=== PATIENT | male | born 1930 | race Caucasian/White ===

== ENCOUNTER → 2016-04-18 | Outpatient (REF) | payer MEDICARE ==
[~2016-04-18] MED LIST: ACET650T PO; ACET65TA; ALLO100T PO; AMIO200T PO; ASPI325T PO; AUGM875T27 PO; CAPT12.5; CARV6.25 PO; CITA10TA2 PO; FISHOIL PO; ISOS30BRAN PO; KLOR10TA PO; LASI40TA; LASI40TA PO; LEVO150T PO; LOPR50TA PO; NITR0.4S; OMEP20CA3 PO; PLAV75TA2 PO; SIMV20TA2 PO; XOPE1.252; ZITH250T
[2016-04-18 13:49] LABS: FREE T4 1.17 NG/DL (0.76-1.46)
== END ==
LOC: M LAB REF 12:50
PROVIDERS: ATTEND Nurse Practitioner Family
DX: E03.9 Hypothyroidism, unspecified (principal)

== ENCOUNTER → 2016-10-13 | Outpatient (CLI) | payer MEDICARE ==
[2016-10-13 19:02] LABS: ALBUMIN 3.4 GM/DL (3.2-5.2); ALBUMIN/GLOBULIN RATIO 1.1 (1.00-1.93); BILIRUBIN,TOTAL 0.6 MG/DL (0.2-1.0); CALCIUM LEVEL 8.8 MG/DL (8.8-10.2); CREATININE FOR GFR 1.76 MG/DL (0.70-1.30); FREE T4 1.18 NG/DL (0.76-1.46); GLOMERULAR FILTRATION RATE 39.5 (>35); POTASSIUM SERUM 4.3 MEQ/L (3.5-5.1); TOTAL PROTEIN 6.5 GM/DL (6.4-8.2); URIC ACID 5.1 MG/DL (3.5-7.2)
[2016-10-13 19:50] LABS: BASO # 0.1 K/mm3 (0.0-0.2); BASO % 1.2 % (0.0-1.0); EOS # 0.5 K/mm3 (0.0-0.50); EOS % 8.9 % (0.0-3.0); LYMPH # 1.3 K/mm3 (1.5-4.5); LYMPH % 19.6 % (24.0-44.0); MEAN CORPUSCULAR HEMOGLOBIN 32.5 pg (27.0-33.0); MEAN CORPUSCULAR HGB CONC 34.8 g/dl (32.0-36.5); MEAN CORPUSCULAR VOLUME 93.2 fl (80.0-96.0); MONO # 0.4 K/mm3 (0.0-0.8); NEUTROPHILS # 3.5 K/mm3 (1.8-7.7); NEUTROPHILS % 60.8 % (36.0-66.0); RED CELL DISTRIBUTION WIDTH 13.5 % (11.5-14.5); WHITE BLOOD COUNT 5.8 K/mm3 (4.0-10.0)
== END ==
LOC: M SMT 10:26
PROVIDERS: ATTEND Nurse Practitioner Family
DX: N18.3 Chronic kidney disease, stage 3 (moderate) (principal); I48.2 Chronic atrial fibrillation; M10.9 Gout, unspecified; E03.9 Hypothyroidism, unspecified; I25.10 Atherosclerotic heart disease of native coronary artery without angina pectoris

== ENCOUNTER → 2017-01-12 | Outpatient (CLI) | payer MEDICARE ==
[2017-01-12 13:15] LABS: MEAN CORPUSCULAR HEMOGLOBIN 31.6 pg (27.0-33.0); MEAN CORPUSCULAR HGB CONC 33.6 g/dl (32.0-36.5); MEAN CORPUSCULAR VOLUME 94.1 fl (80.0-96.0); PLATELET COUNT, AUTOMATED 153 10^3/uL (150-450); RED CELL DISTRIBUTION WIDTH 13.1 % (11.5-14.5); WHITE BLOOD COUNT 5.9 10^3/uL (4.0-10.0)
[2017-01-12 15:00] LABS: ALBUMIN 3.4 GM/DL (3.2-5.2); CALCIUM LEVEL 9.2 MG/DL (8.8-10.2); CREATININE FOR GFR 1.84 MG/DL (0.70-1.30); GLOMERULAR FILTRATION RATE 37.4 (>35); PHOSPHORUS LEVEL 2.8 MG/DL (2.5-4.9); POTASSIUM SERUM 4.6 MEQ/L (3.5-5.1); URIC ACID 5.3 MG/DL (3.5-7.2)
== END ==
LOC: M SMT 10:39
PROVIDERS: ATTEND Nurse Practitioner Family
DX: N18.3 Chronic kidney disease, stage 3 (moderate) (principal); N25.81 Secondary hyperparathyroidism of renal origin; M10.9 Gout, unspecified; D63.1 Anemia in chronic kidney disease

== ENCOUNTER → 2017-04-16 | Outpatient (CLI) | payer MEDICARE ==
[2017-04-16 19:11] LABS: BASO # 0.1 10^3/uL (0.0-0.2); EOS # 0.6 10^3/uL (0.0-0.50); EOS % 10.2 % (0.0-3.0); HEMATOCRIT 40.2 % (42.0-52.0); HEMOGLOBIN 13.3 g/dl (14.0-18.0); IMMATURE GRANULOCYTE % 0.7 % (0-0); LYMPH # 1.3 10^3/uL (1.5-4.5); LYMPH % 20.3 % (24.0-44.0); MEAN CORPUSCULAR HGB CONC 33.1 g/dl (32.0-36.5); MEAN CORPUSCULAR VOLUME 93.7 fl (80.0-96.0); MONO # 0.6 10^3/uL (0.0-0.8); MONO % 10.2 % (0.0-5.0); NEUTROPHILS # 3.5 10^3/uL (1.8-7.7); NEUTROPHILS % 57.6 % (36.0-66.0); PLATELET COUNT, AUTOMATED 164 10^3/uL (150-450); RED BLOOD COUNT 4.29 10^6/uL (4.30-6.10); RED CELL DISTRIBUTION WIDTH 12.7 % (11.5-14.5); WHITE BLOOD COUNT 6.2 10^3/uL (4.0-10.0)
[2017-04-16 19:26] LABS: APPEARANCE, URINE CLEAR (CLEAR); BACTERIA, URINE AUTO NEGATIVE (NEGATIVE); BILIRUBIN, URINE AUTO NEGATIVE (NEGATIVE); BLOOD, URINE BLOOD NEGATIVE (NEGATIVE); COLOR, URINE YELLOW (YELLOW); GLUCOSE, URINE (UA) AUTO NEGATIVE (NEGATIVE); KETONE, URINE AUTO NEGATIVE (NEGATIVE); LEUKOCYTE ESTERASE, URINE AUTO NEGATIVE (NEGATIVE); NITRITE, URINE AUTO NEGATIVE (NEGATIVE); PROTEIN, URINE AUTO 2+ mg/dL (NEGATIVE); RBC, URINE AUTO 0 /HPF (0-3); SPECIFIC GRAVITY URINE AUTO 1.014 (1.002-1.035); SQUAMOUS EPITHELIAL CELL UR AU 0 /HPF (0-6); WBC, URINE AUTO 0 /HPF (0-3)
[2017-04-16 19:51] LABS: ALBUMIN 3.6 GM/DL (3.2-5.2); ALBUMIN/GLOBULIN RATIO 1.09 (1.00-1.93); ALKALINE PHOSPHATASE 101 U/L (45-117); ALT/SGPT 16 U/L (12-78); ANION GAP 5 MEQ/L (8-16); AST/SGOT 16 U/L (7-37); BILIRUBIN,TOTAL 0.6 MG/DL (0.2-1.0); BLOOD UREA NITROGEN 30 MG/DL (7-18); CALCIUM LEVEL 8.7 MG/DL (8.8-10.2); CARBON DIOXIDE LEVEL 30 MEQ/L (21-32); CHLORIDE LEVEL 106 MEQ/L (98-107); CHOLESTEROL LEVEL 135 MG/DL (<200); CHOLESTEROL RISK RATIO 4.354 (<5); CREATININE FOR GFR 1.92 MG/DL (0.70-1.30); FREE T4 1.13 NG/DL (0.76-1.46); GLOMERULAR FILTRATION RATE 35.6 (>35); GLUCOSE, FASTING 89 MG/DL (70-100); HDL CHOLESTEROL 31 MG/DL (>40); LDL CHOLESTEROL 66.6 MG/DL (<100); NON-HDL-C 104 MG/DL; SODIUM LEVEL 141 MEQ/L (136-145); TOTAL PROTEIN 6.9 GM/DL (6.4-8.2); TRIGLYCERIDES LEVEL 187 MG/DL (<150)
[2017-04-16 19:53] LABS: POTASSIUM SERUM 5.2 MEQ/L (3.5-5.1)
[2017-04-16 19:57] LABS: TOTAL 25(OH) VITAMIN D 16.7 NG/ML (30.0-100.0)
[2017-04-16 19:58] LABS: PTH INTACT 87.8 PG/ML (14.0-72.0)
== END ==
LOC: M SMT 11:09
DX: E03.9 Hypothyroidism, unspecified (principal); I12.9 Hypertensive chronic kidney disease with stage 1 through stage 4 chronic kidney disease, or unspecified chronic kidney disease; N18.4 Chronic kidney disease, stage 4 (severe); D63.1 Anemia in chronic kidney disease
CPT/HCPCS: 84443

== ENCOUNTER → 2018-01-02 | Outpatient (REF) | payer MEDICARE | LOC: M LAB REF 14:17 | DX: R19.7 Diarrhea, unspecified (principal) ==

== ENCOUNTER → 2018-01-02 | Outpatient (CLI) | payer MEDICARE ==
[2018-01-02 16:29] LABS: BASO % 0.7 % (0.0-1.0); EOS # 0.1 10^3/uL (0.0-0.50); EOS % 1.8 % (0.0-3.0); HEMATOCRIT 36.3 % (42.0-52.0); HEMOGLOBIN 12.1 g/dl (13.5-17.5); IMMATURE GRANULOCYTE % 0.5 % (0-3.0); LYMPH # 1.1 10^3/uL (1.5-4.5); LYMPH % 18.8 % (24.0-44.0); MEAN CORPUSCULAR HEMOGLOBIN 31.4 pg (27.0-33.0); MEAN CORPUSCULAR HGB CONC 33.3 g/dl (32.0-36.5); MEAN CORPUSCULAR VOLUME 94.3 fl (80.0-96.0); MONO # 0.9 10^3/uL (0.0-0.8); MONO % 15.6 % (0.0-5.0); NEUTROPHILS # 3.7 10^3/uL (1.8-7.7); NEUTROPHILS % 62.6 % (36.0-66.0); PLATELET COUNT, AUTOMATED 145 10^3/uL (150-450); RED BLOOD COUNT 3.85 10^6/uL (4.30-6.10); RED CELL DISTRIBUTION WIDTH 13.3 % (11.5-14.5)
[2018-01-02 16:54] LABS: ALBUMIN 2.7 GM/DL (3.2-5.2); ALBUMIN/GLOBULIN RATIO 0.77 (1.00-1.93); ALKALINE PHOSPHATASE 77 U/L (45-117); ALT/SGPT 11 U/L (12-78); AMYLASE 37 U/L (25-115); ANION GAP 9 MEQ/L (8-16); AST/SGOT 8 U/L (7-37); BILIRUBIN,TOTAL 0.7 MG/DL (0.2-1.0); BLOOD UREA NITROGEN 30 MG/DL (7-18); CARBON DIOXIDE LEVEL 26 MEQ/L (21-32); CHLORIDE LEVEL 105 MEQ/L (98-107); CREATININE FOR GFR 2.06 MG/DL (0.70-1.30); FREE T4 1.48 NG/DL (0.76-1.46); GLOMERULAR FILTRATION RATE 32.8 (>35); GLUCOSE, FASTING 81 MG/DL (70-100); LIPASE 143 U/L (73-393); SODIUM LEVEL 140 MEQ/L (136-145); TOTAL PROTEIN 6.2 GM/DL (6.4-8.2)
== END ==
LOC: M WUC 11:46
DX: R19.7 Diarrhea, unspecified (principal)
CPT/HCPCS: 82150

== ENCOUNTER 2018-02-28 07:51 | Day surgery (SDC) | payer MEDICARE ==
[~2018-02-28 07:51] MED LIST changes: -ACET650T PO; -ACET65TA; -ALLO100T PO; -AMIO200T PO; -ASPI325T PO; -AUGM875T27 PO; -CAPT12.5; -CARV6.25 PO; -CITA10TA2 PO; -FISHOIL PO; -ISOS30BRAN PO; -KLOR10TA PO; -LASI40TA; -LASI40TA PO; -LEVO150T PO; -LOPR50TA PO; +MIDAZOLAM INJ 2 MG/2 ML VIAL (J2250) As Ordered; -NITR0.4S; -OMEP20CA3 PO; -PLAV75TA2 PO; -SIMV20TA2 PO; -XOPE1.252; -ZITH250T; +fentaNYL 100 MCG/2 ML INJECTION (J3010) As Ordered
[2018-02-28] MEDS: TROPICAMIDE 1% OPHTH SOLN 2ML OS (08:17)
[2018-02-28] MEDS: OFLOXACIN 0.3 % (OCUFLOX) OPTH SOL 5ML OS (08:17)
[2018-02-28] MEDS: PROPARACAINE 0.5% OPHTH SOL 15ML OS (08:17)
[2018-02-28] MEDS: PHENYLEPHRINE 2.5% OPHTH SOL 2ML OS (08:17)
[2018-02-28] MEDS: BALANCED SALT IRRIGATION SOLUTION 500ML BAG (FOR OR EYE MACHINE) As Ordered (09:10)
[2018-02-28] MEDS: DUOVISC (0.50ML VISCOAT/0.55ML PROVISC) OPHTH KIT As Ordered (09:10)
[2018-02-28] MEDS: POVIDONE-IODINE 5% OPHTH PREP SOL 30ML As Ordered (09:10)
[2018-02-28] MEDS: CEFUROXIME 1MG/0.1ML INTRACAMERAL INJ As Ordered (09:11)
[2018-02-28] MEDS: LIDOCAINE 0.75%/EPINEPHRINE 0.025% IN BSS 1ML SYR INTRACAMERAL (OR ONLY) As Ordered (09:11)
[2018-02-28] MEDS ORDERED: ONDANSETRON 4MG/2ML VIAL (J2405) IV (09:45)
== END 2018-02-28 10:05 | disposition home or self-care (01) ==
LOC: M SDC 07:51
DX: H25.12 Age-related nuclear cataract, left eye (principal); H57.03 Miosis; I25.10 Atherosclerotic heart disease of native coronary artery without angina pectoris; I48.2 Chronic atrial fibrillation; I25.2 Old myocardial infarction; D63.1 Anemia in chronic kidney disease; I12.9 Hypertensive chronic kidney disease with stage 1 through stage 4 chronic kidney disease, or unspecified chronic kidney disease; E78.00 Pure hypercholesterolemia, unspecified; E03.9 Hypothyroidism, unspecified; K21.9 Gastro-esophageal reflux disease without esophagitis; A04.72 Enterocolitis due to Clostridium difficile, not specified as recurrent; R06.02 Shortness of breath; M17.0 Bilateral primary osteoarthritis of knee; M10.9 Gout, unspecified; F41.9 Anxiety disorder, unspecified; F32.9 Major depressive disorder, single episode, unspecified; J44.9 Chronic obstructive pulmonary disease, unspecified; N18.9 Chronic kidney disease, unspecified; N40.0 Benign prostatic hyperplasia without lower urinary tract symptoms; Z88.7 Allergy status to serum and vaccine; Z79.899 Other long term (current) drug therapy; Z79.82 Long term (current) use of aspirin; Z98.41 Cataract extraction status, right eye; Z98.42 Cataract extraction status, left eye; Z96.1 Presence of intraocular lens; Z95.5 Presence of coronary angioplasty implant and graft
CPT/HCPCS: 66982

== ENCOUNTER → 2018-09-05 | Outpatient (CLI) | payer MEDICARE ==
[~2018-09-05] MED LIST changes: +ACET650T PO; +ACET65TA; +ALLO100T PO; +AMIO200T PO; +ASPI1TAB20 PO; +ASPI325T PO; +AUGM875T27 PO; +BUPR1TAB53 PO; +CAPT12.5; +CARV3.12 PO; +CARV6.25 PO; +CITA10TA2 PO; +FINA5TAB2 PO; +FISHOIL PO; +FLOM0.4C39 PO; +FURO20TA2 PO; +ISOS30BRAN PO; +KLOR10TA PO; +LASI40TA; +LASI40TA PO; +LEVO125T4 PO; +LEVO150T PO; +LOPR50TA PO; -MIDAZOLAM INJ 2 MG/2 ML VIAL (J2250) As Ordered; +NITR0.4S; +OMEP20CA3 PO; +PARO5TAB PO; +PLAV75TA2 PO; +PROBCAP14 PO; +ROCA0.25 PO; +SIMV20TA2 PO; +VANC125C3 PO; +XOPE1.252; +ZITH250T; -fentaNYL 100 MCG/2 ML INJECTION (J3010) As Ordered
--- NOTE | 2018-09-05 12:08 | REP ---
Chest two views HISTORY: Cough Comparison: 05/03/2015 An increase in interstitial markings is present in the lungs consistent with chronic interstitial fibrosis. Patchy density is present in the left lower lobe consistent with atelectasis or infiltrate. The heart is normal in size. The pulmonary vasculature is normal in appearance. Degenerative changes present in the thoracic spine. IMPRESSION: 1. Chronic interstitial fibrosis. 2. Left lower lobe atelectasis or infiltrate. Electronically Signed by Celestine Espinosa MD 09/05/2018 11:59 A
[2018-09-05 13:03] LABS: BASO % 0.3 % (0.0-1.0); EOS # 0.1 10^3/uL (0.0-0.50); EOS % 0.5 % (0.0-3.0); HEMATOCRIT 36.8 % (42.0-52.0); HEMOGLOBIN 12.1 g/dl (13.5-17.5); LYMPH % 9.4 % (24.0-44.0); MEAN CORPUSCULAR HEMOGLOBIN 31.1 pg (27.0-33.0); MEAN CORPUSCULAR HGB CONC 32.9 g/dl (32.0-36.5); MEAN CORPUSCULAR VOLUME 94.6 fl (80.0-96.0); MONO # 1.6 10^3/uL (0.0-0.8); MONO % 14.9 % (0.0-5.0); NEUTROPHILS # 8.2 10^3/uL (1.8-7.7); NEUTROPHILS % 74.5 % (36.0-66.0); PLATELET COUNT, AUTOMATED 180 10^3/uL (150-450); RED BLOOD COUNT 3.89 10^6/uL (4.30-6.10)
[2018-09-05 13:27] LABS: ALBUMIN 3.1 GM/DL (3.2-5.2); BILIRUBIN,TOTAL 1.6 MG/DL (0.2-1.0); CALCIUM LEVEL 8.8 MG/DL (8.8-10.2); CREATININE FOR GFR 1.71 MG/DL (0.70-1.30); GLOMERULAR FILTRATION RATE 40.6 (>35); POTASSIUM SERUM 4.3 MEQ/L (3.5-5.1); TOTAL PROTEIN 6.5 GM/DL (6.4-8.2)
== END ==
LOC: M WUC 11:36
PROVIDERS: ATTEND Physician Assistant
DX: R05 Cough (principal)

== ENCOUNTER → 2018-09-27 | Outpatient (CLI) | payer MEDICARE ==
[~2018-09-27] MED LIST changes: +ASPI-524 PO; -ASPI1TAB20 PO; +OMEP20CA4 PO
--- NOTE | 2018-09-27 11:32 | REP ---
Clinical: Chest pain. Pneumonia. Technique: PA and lateral. Comparison: 09/05/2018. Findings: Mediastinum and cardiac silhouette are within normal limits and stable. Lung farias demonstrate diffuse chronic interstitial changes. No acute consolidation, effusion, or pneumothorax. Previously noted left lower lobe infiltrate appears to have resolved. Impression: Chronic stable changes. Previous left lower lobe infiltrate appears to have resolved. Electronically Signed by Corby Ledesma MD 09/27/2018 11:24 A
== END ==
LOC: M WUC 11:14
PROVIDERS: ATTEND Nurse Practitioner Family
DX: Z87.01 Personal history of pneumonia (recurrent) (principal)

== ENCOUNTER → 2019-01-03 | Outpatient (REF) | payer MEDICARE ==
[~2019-01-03] MED LIST changes: -ASPI-524 PO; +ASPI325T57 PO
[2019-01-03 17:34] LABS: ALBUMIN 3.3 GM/DL (3.2-5.2); BILIRUBIN,DIRECT 0.2 MG/DL (0.0-0.2); BILIRUBIN,TOTAL 0.7 MG/DL (0.2-1.0); TOTAL PROTEIN 6.7 GM/DL (6.4-8.2)
== END ==
LOC: M LAB REF 16:49
PROVIDERS: ATTEND Nurse Practitioner Family
DX: R82.2 Biliuria (principal); R10.11 Right upper quadrant pain

== ENCOUNTER → 2019-01-03 | Outpatient (CLI) | payer MEDICARE ==
--- NOTE | 2019-01-03 16:35 | REP ---
RIGHT UPPER QUADRANT ULTRASOUND: Real-time sonographic evaluation of the right upper quadrant performed. The patient is not NPO. The gallbladder is contracted and cannot be evaluated. There is no intrahepatic or extrahepatic biliary dilatation, the common bile duct measuring 5 mm. The liver and pancreas demonstrate no gross mass, pancreas is not optimally seen due to overlying bowel gas. The right kidney demonstrates no hydronephrosis with normal size 11.1 cm in length. No free fluid is seen. IMPRESSION: Patient is not NPO and the gallbladder is contracted. Therefore the gallbladder cannot be evaluated. There is no evidence of biliary dilatation or free fluid. Electronically Signed by Boone Rai MD 01/07/2019 08:58 A
== END ==
LOC: M RAD 15:23
PROVIDERS: ATTEND Nurse Practitioner Family
DX: R10.11 Right upper quadrant pain (principal); R82.2 Biliuria

== ENCOUNTER → 2019-03-25 | Outpatient (REF) | payer MEDICARE ==
[~2019-03-25] MED LIST changes: +OMEP-172 PO; -OMEP20CA4 PO; +SIMV20TA22 PO
[2019-03-25 13:58] LABS: ALBUMIN 3.1 GM/DL (3.2-5.2); BILIRUBIN,DIRECT 0.2 MG/DL (0.0-0.2); BILIRUBIN,TOTAL 0.8 MG/DL (0.2-1.0); FREE T4 1.07 NG/DL (0.76-1.46); THYROID STIMULATING HORMONE 2.74 uIU/ML (0.358-3.740); TOTAL PROTEIN 6.4 GM/DL (6.4-8.2)
== END ==
LOC: M LAB REF 13:08
PROVIDERS: ATTEND Nurse Practitioner Family
DX: E03.9 Hypothyroidism, unspecified (principal); R10.11 Right upper quadrant pain; R82.2 Biliuria

== ENCOUNTER 2019-05-16 12:51 | Day surgery (SDC) | payer MEDICARE ==
[~2019-05-16] VITALS: Ht 182.9 cm; Wt 80.7 kg
[~2019-05-16 12:51] MED LIST changes: +FISH1000 PO; +NS 1,000 ML IV ONE; -OMEP-172 PO; +OMEP1CAP73 PO; +PEPC20TA18 PO; +TYLE650T35 PO
[2019-05-16] MEDS ORDERED: fentaNYL 100 MCG/2 ML INJECTION (J3010) As Ordered ONE (14:04)
[2019-05-16] MEDS ORDERED: propofoL 200 MG/20 ML VIAL As Ordered ONE (14:04)
[2019-05-16] MEDS ORDERED: LIDOCAINE 2% INJ 100 MG/5 ML SDV (FOR ANES.) As Ordered ONE (14:04)
--- NOTE | 2019-05-16 14:14 | ROOR ---
Patient Name: Noah Quiroz Procedure Date: 05/16/2019 1:41 PM Date of : 1930 Age: 89 Room: [facility] Gender: Male Note Status: Finalized Procedure: Upper GI endoscopy Indications: Epigastric abdominal pain Providers: Keshav BOWDEN MD Referring MD: Eliz Zavala MD Requesting Provider: Medicines: Monitored Anesthesia Care Complications: No immediate complications. Procedure: Pre-Anesthesia Assessment: - The heart rate, respiratory rate, oxygen saturations, blood pressure, adequacy of pulmonary ventilation, and response to care were monitored throughout the procedure. The Endoscope was introduced through the mouth, and advanced to the second part of duodenum. The Endoscope was introduced through the mouth, and advanced to the second part of duodenum. The upper GI endoscopy was accomplished without difficulty. The patient tolerated the procedure well. Findings: A small, polypoid mass was found at the gastroesophageal junction. The mass was non-obstructing and not circumferential. This was biopsied with a cold forceps for histology. The entire examined stomach was normal. The examined duodenum was normal. Impression: - A small, 2 cm villous appearing mass was found at the gastroesophageal junction. Biopsied (difficult to visualize due to difficult access, only seen with in retroflexion) - Normal stomach. - Normal examined duodenum. - No specimens collected. Recommendation: - Await pathology results. Keshav Bowden MD Keshav BOWDEN MD 05/16/2019 2:14:09 PM Electronically signed by Keshav BOWDEN MD Number of Addenda: 0 Note Initiated On: 05/16/2019 1:41 PM Estimated Blood Loss: Estimated blood loss: none.
[2019-05-16 14:43] VITALS: BP 167/88
== END 2019-05-16 14:43 | disposition home or self-care (01) ==
LOC: M OPP 12:51
PROVIDERS: ATTEND Internal Medicine Gastroenterology
DX: C16.0 Malignant neoplasm of cardia (principal); R10.13 Epigastric pain; I48.91 Unspecified atrial fibrillation; I25.2 Old myocardial infarction; Z79.82 Long term (current) use of aspirin; Z79.899 Other long term (current) drug therapy; Z88.7 Allergy status to serum and vaccine; Z87.891 Personal history of nicotine dependence; Z95.5 Presence of coronary angioplasty implant and graft
CPT/HCPCS: 43239; 88305; J3010

== ENCOUNTER → 2019-05-29 | Outpatient (CLI) | payer MEDICARE ==
[~2019-05-29] MED LIST changes: -NS 1,000 ML IV ONE
[2019-05-29 12:34] LABS: CREATININE FOR GFR 1.74 MG/DL (0.70-1.30); GLOMERULAR FILTRATION RATE 39.7 (>35)
== END ==
LOC: M LAB 11:12
PROVIDERS: ATTEND Internal Medicine Gastroenterology
DX: C15.5 Malignant neoplasm of lower third of esophagus (principal)

== ENCOUNTER → 2019-08-21 | Outpatient (REF) | payer MEDICARE ==
[2019-08-25 17:58] LABS: FREE T4 1.23 NG/DL (0.76-1.46); THYROID STIMULATING HORMONE 1.62 uIU/ML (0.358-3.740)
== END ==
LOC: M LAB REF 17:15
PROVIDERS: ATTEND Nurse Practitioner Family
DX: I48.0 Paroxysmal atrial fibrillation (principal)

== ENCOUNTER → 2019-11-25 | Outpatient (CLI) | payer MEDICARE ==
[~2019-11-25] MED LIST changes: +ACET650T61 PO; +KEFL500C17 PO; +MILKSUS3; +MIRA3350 PO; +PRED5TA PO; -TYLE650T35 PO
== END ==
LOC: M LAB 11:49
PROVIDERS: ATTEND Internal Medicine Hematology & Oncology
DX: C34.90 Malignant neoplasm of unspecified part of unspecified bronchus or lung (principal)

== ENCOUNTER → 2019-12-14 | Outpatient (CLI) | payer MEDICARE | LOC: M LABSMTC 08:47 | PROVIDERS: ATTEND Anesthesiology | DX: Z01.812 Encounter for preprocedural laboratory examination (principal); Z20.828 Contact with and (suspected) exposure to other viral communicable diseases | CPT/HCPCS: C9803; U0003 ==

== ENCOUNTER 2019-12-15 10:11 | Emergency (ER) | payer MEDICARE ==
[~2019-12-15] VITALS: Ht 182.9 cm; Wt 74.5 kg
[~2019-12-15 10:11] MED LIST changes: -KEFL500C17 PO; -MILKSUS3; -MIRA3350 PO; -PRED5TA PO
[2019-12-15] MEDS ORDERED: PRED5TA PO (11:00)
[2019-12-15] MEDS ORDERED: MILKSUS3 (11:00)
[2019-12-15] MEDS ORDERED: MIRA3350 PO (11:00)
[2019-12-15 11:16] LABS: BASO % 0.3 % (0.0-1.0); EOS # 0.1 10^3/uL (0.0-0.5); EOS % 0.8 % (0.0-3.0); HEMATOCRIT 41.6 % (42.0-52.0); HEMOGLOBIN 13.6 g/dl (13.5-17.5); LYMPH # 0.8 10^3/uL (1.5-5.0); LYMPH % 12.2 % (24.0-44.0); MEAN CORPUSCULAR HEMOGLOBIN 30.9 pg (27.0-33.0); MEAN CORPUSCULAR HGB CONC 32.7 g/dl (32.0-36.5); MEAN CORPUSCULAR VOLUME 94.5 fl (80.0-96.0); MONO # 0.6 10^3/uL (0.0-0.8); MONO % 9.6 % (0.0-5.0); NEUTROPHILS # 4.7 10^3/uL (1.5-8.5); NEUTROPHILS % 76.8 % (36.0-66.0); PLATELET COUNT, AUTOMATED 130 10^3/uL (150-450); WHITE BLOOD COUNT 6.2 10^3/uL (4.0-10.0)
[2019-12-15 11:49] LABS: ALBUMIN 3.1 GM/DL (3.2-5.2); BILIRUBIN,DIRECT 0.2 MG/DL (0.0-0.2); BILIRUBIN,TOTAL 0.9 MG/DL (0.2-1.0); TOTAL PROTEIN 6.4 GM/DL (6.4-8.2)
--- NOTE | 2019-12-15 12:37 | REPVR ---
PROCEDURE INFORMATION: Exam: CT Abdomen And Pelvis Without Contrast Exam date and time: 12/15/2019 12:02 PM Age: 89 years old Clinical indication: Other: Hematuria; Abdominal pain; Flank; Right; Additional info: Flank pain and hematuria R/O kidney stone TECHNIQUE: Imaging protocol: Computed tomography of the abdomen and pelvis without contrast. Radiation optimization: All CT scans at this facility use at least one of these dose optimization techniques: automated exposure control; mA and/or kV adjustment per patient size (includes targeted exams where dose is matched to clinical indication); or iterative reconstruction. COMPARISON: CT ABD PELVIS W/O CONTRAST 03/04/2013 10:25 AM FINDINGS: Limitations: Lack of intravenous contrast material limits evaluation of the vascular and visceral structures. Lungs: Stable noncalcified 3 mm right middle lobe pulmonary nodule. No follow-up imaging is recommended. Mild interstitial scarring in the lung bases. Liver: Normal. No mass. Gallbladder and bile ducts: Cholelithiasis. No abnormal gallbladder distention or pericholecystic fluid. Pancreas: Normal. No ductal dilation. Spleen: Normal. No splenomegaly. Adrenals: Normal. No mass. Kidneys and ureters: Simple 15 mm right renal cortical cyst. Simple 14 mm right renal cortical cyst. Simple 11 mm left renal cortical cyst. No hydronephrosis or obstructing calculus. Stomach and bowel: Interposition of the hepatic flexure of the colon between the liver and the ventral abdominal wall. Large duodenal diverticulum. No adjacent inflammation. Colonic diverticulosis. No evidence of acute diverticulitis. Appendix: No evidence of appendicitis. Intraperitoneal space: Unremarkable. No free air. No significant fluid collection. Vasculature: Moderate atherosclerotic vascular calcifications. Coronary artery calcifications. Lymph nodes: Unremarkable. No enlarged lymph nodes. Bladder: Unremarkable as visualized. Reproductive: The prostate gland mildly bulges into the base of the urinary bladder. Bones/joints: Degenerative change of the spine. Mild left sacroiliac joint DJD. Bilateral hip joint DJD. Degenerative change of the pubic symphysis. Chronic rib fracture deformities. Soft tissues: Unremarkable. IMPRESSION: 1. No acute abnormality is identified within the abdomen/pelvis. 2. Colonic and duodenal diverticulosis. 3. Cholelithiasis. COMMENTS: Consistent with the [employer]'s Incidental Findings Committee white paper (J Am Agustina Radiol 2018): Any incidental renal lesion less than 1 cm or classified as too small to characterize, or any incidental cystic renal lesion characterized as simple-appearing, is likely benign. No follow-up imaging is recommended for these lesions per consensus recommendations based on imaging criteria. Electronically signed by: Aiyana Kenyon On 12/15/2019 12:36:39 PM
[2019-12-15 13:45] VITALS: BP 188/98
== END 2019-12-15 14:00 | disposition home or self-care (01) ==
LOC: M ED 10:11
DX: R10.9 Unspecified abdominal pain (principal); I48.91 Unspecified atrial fibrillation; I25.2 Old myocardial infarction; I10 Essential (primary) hypertension; C34.90 Malignant neoplasm of unspecified part of unspecified bronchus or lung; N18.9 Chronic kidney disease, unspecified; Z95.5 Presence of coronary angioplasty implant and graft; Z85.01 Personal history of malignant neoplasm of esophagus; K80.20 Calculus of gallbladder without cholecystitis without obstruction; K57.10 Diverticulosis of small intestine without perforation or abscess without bleeding; K57.30 Diverticulosis of large intestine without perforation or abscess without bleeding; Z79.899 Other long term (current) drug therapy; Z88.7 Allergy status to serum and vaccine

== ENCOUNTER 2019-12-19 07:58 | Day surgery (SDC) | payer MEDICARE ==
[~2019-12-19] VITALS: Ht 182.9 cm; Wt 74.8 kg
[~2019-12-19 07:58] MED LIST changes: +MILKSUS3; +MIRA3350 PO; +NS 1,000 ML IV ONE; +PRED5TA PO
[2019-12-19] MEDS ORDERED: CARV3.12 PO (08:51)
[2019-12-19] MEDS ORDERED: propofoL 200 MG/20 ML VIAL As Ordered ONE (10:27)
--- NOTE | 2019-12-19 10:43 | ROOR ---
Patient Name: Noah Quiroz Procedure Date: 12/19/2019 9:22 AM Date of : 1930 Age: 89 Room: [facility] Gender: Male Note Status: Finalized Procedure: Colonoscopy Indications: Abnormal PET scan of the GI tract Providers: Keshav BOWDEN MD Referring MD: Archana Marsh MD Requesting Provider: Medicines: Monitored Anesthesia Care Complications: No immediate complications. Procedure: Pre-Anesthesia Assessment: - The heart rate, respiratory rate, oxygen saturations, blood pressure, adequacy of pulmonary ventilation, and response to care were monitored throughout the procedure. The Colonoscope was introduced through the anus and advanced to the cecum, identified by appendiceal orifice and ileocecal valve. The colonoscopy was technically difficult and complex due to dolichocolon and a tortuous colon. Successful completion of the procedure was aided by changing the patient to a supine position, using manual pressure and withdrawing and reinserting the scope. The patient tolerated the procedure well. The quality of the bowel preparation was fair. Findings: The perianal and digital rectal examinations were normal. A frond-like/villous and polypoid non-obstructing medium-sized mass was found in the proximal ascending colon. The mass measured three cm in length. This was biopsied with a cold forceps for histology. A frond-like/villous non-obstructing small mass was found at the hepatic flexure. The mass measured two cm in length. This was biopsied with a cold forceps for histology. A frond-like/villous medium-sized mass was found at the splenic flexure. The mass measured three cm in length. This was biopsied with a cold forceps for histology. Area was tattooed with an injection of Allie ink surrounding this most distal lesion for possible eventual surgical management). A 5 mm polyp was found in the descending colon. The polyp was sessile. The polyp was removed with a cold snare. Resection and retrieval were complete. Multiple medium-mouthed diverticula were found in the sigmoid colon. Internal hemorrhoids were found during retroflexion. The hemorrhoids were moderate. Impression: - Preparation of the colon was fair. - Rule out malignancy, 3 cm polypoid tumor in the proximal ascending colon. Biopsied. - Rule out malignancy, 2 cm polypoid tumor at the hepatic flexure. Biopsied. - Rule out malignancy, 3 cm polypoid tumor at the splenic flexure. Biopsied. Tattooed. (splenic flexure lesion tattooed) - One 5 mm polyp in the descending colon, removed with a cold snare. Resected and retrieved. - Diverticulosis in the sigmoid colon. - Internal hemorrhoids. Recommendation: - Refer to a surgeon at appointment to be scheduled. - For consideration extended right hemicolectomy - The lesions in the ascending colon, hepatic flexure and splenic flexure are not safely resectable via colonoscopy. Keshav Bowden MD Keshav BOWDEN MD 12/19/2019 10:42:55 AM Electronically signed by Keshav BOWDEN MD Number of Addenda: 0 Note Initiated On: 12/19/2019 9:22 AM Estimated Blood Loss: Estimated blood loss: none.
[2019-12-19 10:50] VITALS: BP 150/72
== END 2019-12-19 11:14 | disposition home or self-care (01) ==
LOC: M OPP 07:58
PROVIDERS: ATTEND Internal Medicine Gastroenterology
DX: D12.2 Benign neoplasm of ascending colon (principal); D12.4 Benign neoplasm of descending colon; D12.3 Benign neoplasm of transverse colon; K57.30 Diverticulosis of large intestine without perforation or abscess without bleeding; K64.8 Other hemorrhoids; I10 Essential (primary) hypertension; I48.91 Unspecified atrial fibrillation; Z79.899 Other long term (current) drug therapy; Z88.7 Allergy status to serum and vaccine; Z85.01 Personal history of malignant neoplasm of esophagus; Z95.5 Presence of coronary angioplasty implant and graft

== ENCOUNTER → 2020-01-14 | Outpatient (CLI) | payer MEDICARE ==
[~2020-01-14] MED LIST changes: +KEFL500C17 PO; -NS 1,000 ML IV ONE
[2020-01-14 17:17] LABS: CREATININE FOR GFR 1.71 MG/DL (0.70-1.30); GLOMERULAR FILTRATION RATE 40.4 (>35)
== END ==
LOC: M WUC 12:14
PROVIDERS: ATTEND Nurse Practitioner Family
DX: N18.32 Chronic kidney disease, stage 3b (principal)

== ENCOUNTER → 2020-01-14 | Outpatient (CLI) | payer MEDICARE ==
[2020-01-14 16:59] LABS: BASO % 0.6 % (0.0-1.0); EOS # 0.2 10^3/uL (0.0-0.5); EOS % 4.3 % (0.0-3.0); HEMATOCRIT 39.8 % (42.0-52.0); HEMOGLOBIN 12.9 g/dl (13.5-17.5); LYMPH # 0.9 10^3/uL (1.5-5.0); LYMPH % 17.1 % (24.0-44.0); MEAN CORPUSCULAR HGB CONC 32.4 g/dl (32.0-36.5); MEAN CORPUSCULAR VOLUME 95.7 fl (80.0-96.0); MONO # 0.6 10^3/uL (0.0-0.8); NEUTROPHILS # 3.4 10^3/uL (1.5-8.5); NEUTROPHILS % 65.4 % (36.0-66.0); PLATELET COUNT, AUTOMATED 197 10^3/uL (150-450); RED BLOOD COUNT 4.16 10^6/uL (4.30-6.10); WHITE BLOOD COUNT 5.2 10^3/uL (4.0-10.0)
[2020-01-14 17:20] LABS: ALBUMIN 2.9 GM/DL (3.2-5.2); BILIRUBIN,TOTAL 0.6 MG/DL (0.2-1.0); CALCIUM LEVEL 9.1 MG/DL (8.8-10.2); CREATININE FOR GFR 1.75 MG/DL (0.70-1.30); GLOMERULAR FILTRATION RATE 39.4 (>35); POTASSIUM SERUM 4.2 MEQ/L (3.5-5.1); TOTAL PROTEIN 6.2 GM/DL (6.4-8.2)
== END ==
LOC: M WUC 12:19
DX: C34.90 Malignant neoplasm of unspecified part of unspecified bronchus or lung (principal); N18.32 Chronic kidney disease, stage 3b

== ENCOUNTER 2020-01-23 14:15 | Emergency (ER) | payer MEDICARE ==
[~2020-01-23] VITALS: Ht 175.3 cm; Wt 74.1 kg
[~2020-01-23 14:15] MED LIST changes: -KEFL500C17 PO
[2020-01-23 15:07] LABS: HEMATOCRIT 40.5 % (42.0-52.0); HEMOGLOBIN 13.4 g/dl (13.5-17.5); MEAN CORPUSCULAR HEMOGLOBIN 30.7 pg (27.0-33.0); MEAN CORPUSCULAR HGB CONC 33.1 g/dl (32.0-36.5); MEAN CORPUSCULAR VOLUME 92.9 fl (80.0-96.0); PLATELET COUNT, AUTOMATED 186 10^3/uL (150-450); RED BLOOD COUNT 4.36 10^6/uL (4.30-6.10)
[2020-01-23 15:34] LABS: C REACTIVE PROTEIN QUANTITATIV 21.4 MG/DL (0.00-0.30); CALCIUM LEVEL 8.4 MG/DL (8.8-10.2); CREATININE FOR GFR 1.73 MG/DL (0.70-1.30); GLOMERULAR FILTRATION RATE 39.9 (>35); URIC ACID 4.6 MG/DL (3.5-7.2)
[2020-01-23 15:41] LABS: BASOPHILS 1 % (0-1); LYMPHOCYTES 12 % (16-44); MONOCYTES 16 % (0-5); NEUTROPHILS 70 % (28-66)
[2020-01-23 15:43] LABS: PLATELET ESTIMATE NORMAL (NORMAL)
[2020-01-23 16:11] LABS: ERYTHROCYTE SEDIMENTATION RATE 57 mm/hr (0-20)
[2020-01-23] MEDS ORDERED: CEPHALEXIN 500 MG CAP PO ONE (17:00)
[2020-01-23] MEDS ORDERED: KEFL500C17 PO (17:19)
[2020-01-23 17:39] VITALS: BP 117/64
--- NOTE | 2020-01-24 15:24 | REP ---
INDICATION: left elbow contusion. COMPARISON: Comparison left elbow radiographs January 26, 2011.. TECHNIQUE: Four views. FINDINGS: Four views of the left elbow demonstrate advanced osteoarthritic spurring with extensive chondrocalcinosis and multiple osteocartilaginous loose bodies. These are seen anteriorly, posteriorly, medially, and laterally. There is fragmented medial and lateral epicondylar spurring. Proximal radioulnar spurring is noted. Olecranon spurring is noted. Ulno-trochlear spurring is noted. The findings are similar to the prior study but more pronounced. There is no evidence of fracture or subluxation.. No fracture or subluxation is seen. No opaque foreign body noted. 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 Olecranon spurring is noted as well. No fracture seen.. <Electronically signed by Santiago Jenkins > 01/24/20 [id number]
== END 2020-01-23 17:40 | disposition home or self-care (01) ==
LOC: M ED 14:15
DX: S50.02XA Contusion of left elbow, initial encounter (principal); M70.32 Other bursitis of elbow, left elbow; W22.8XXA Striking against or struck by other objects, initial encounter; Y92.9 Unspecified place or not applicable; Y93.9 Activity, unspecified; Y99.9 Unspecified external cause status; I48.91 Unspecified atrial fibrillation; I50.9 Heart failure, unspecified; I25.2 Old myocardial infarction; E03.9 Hypothyroidism, unspecified; Z85.01 Personal history of malignant neoplasm of esophagus; Z95.5 Presence of coronary angioplasty implant and graft; Z98.61 Coronary angioplasty status; M19.022 Primary osteoarthritis, left elbow; M24.022 Loose body in left elbow; M11.222 Other chondrocalcinosis, left elbow; M25.722 Osteophyte, left elbow; Z79.899 Other long term (current) drug therapy; Z88.7 Allergy status to serum and vaccine

== ENCOUNTER → 2020-01-27 | Outpatient (CLI) | payer MEDICARE ==
[~2020-01-27] MED LIST changes: +KEFL500C17 PO
[2020-01-27 17:23] LABS: HEMATOCRIT 37.3 % (42.0-52.0); HEMOGLOBIN 11.8 g/dl (13.5-17.5); MEAN CORPUSCULAR HEMOGLOBIN 30.6 pg (27.0-33.0); MEAN CORPUSCULAR HGB CONC 31.6 g/dl (32.0-36.5); MEAN CORPUSCULAR VOLUME 96.9 fl (80.0-96.0); PLATELET COUNT, AUTOMATED 212 10^3/uL (150-450); RED BLOOD COUNT 3.85 10^6/uL (4.30-6.10); WHITE BLOOD COUNT 7.6 10^3/uL (4.0-10.0)
[2020-01-27 18:17] LABS: C REACTIVE PROTEIN QUANTITATIV 18.8 MG/DL (0.00-0.30); URIC ACID 5.1 MG/DL (3.5-7.2)
[2020-01-27 19:02] LABS: ERYTHROCYTE SEDIMENTATION RATE 66 mm/hr (0-20)
== END ==
LOC: M WUC 12:11
PROVIDERS: ATTEND Physician Assistant Surgical
DX: S50.02XA Contusion of left elbow, initial encounter (principal); X58.XXXD Exposure to other specified factors, subsequent encounter; Y92.9 Unspecified place or not applicable

== ENCOUNTER → 2020-02-06 | Outpatient (REF) | payer MEDICARE ==
[2020-02-06 17:43] LABS: HEMATOCRIT 37.2 % (42.0-52.0); HEMOGLOBIN 11.7 g/dl (13.5-17.5); MEAN CORPUSCULAR HEMOGLOBIN 30.1 pg (27.0-33.0); MEAN CORPUSCULAR HGB CONC 31.5 g/dl (32.0-36.5); MEAN CORPUSCULAR VOLUME 95.6 fl (80.0-96.0); PLATELET COUNT, AUTOMATED 386 10^3/uL (150-450); RED BLOOD COUNT 3.89 10^6/uL (4.30-6.10); WHITE BLOOD COUNT 6.6 10^3/uL (4.0-10.0)
[2020-02-06 19:00] LABS: ERYTHROCYTE SEDIMENTATION RATE 69 mm/hr (0-20)
== END ==
LOC: M LAB REF 17:02
PROVIDERS: ATTEND Physician Assistant Surgical
DX: S50.02XD Contusion of left elbow, subsequent encounter (principal); W18.30XD Fall on same level, unspecified, subsequent encounter; Y92.009 Unspecified place in unspecified non-institutional (private) residence as the place of occurrence of the external cause

== ENCOUNTER → 2020-02-13 | Outpatient (REF) | payer MEDICARE ==
[2020-02-13 18:26] LABS: FREE T4 1.39 NG/DL (0.76-1.46); THYROID STIMULATING HORMONE 4.25 uIU/ML (0.358-3.740)
== END ==
LOC: M LAB REF 16:53
PROVIDERS: ATTEND Nurse Practitioner Family
DX: E03.9 Hypothyroidism, unspecified (principal)

== ENCOUNTER → 2020-03-30 | Outpatient (CLI) | payer MEDICARE ==
--- NOTE | 2020-03-31 14:58 | REP ---
INDICATION: RESTAGING LUNG CANCER. Patient reports having been treated with radiation therapy. COMPARISON: Comparison CT study of the chest abdomen pelvis May and chest CT dated 21 January 2020. TECHNIQUE: Fifty-three minutes following the intravenous injection of a 8.10 mCi dose of F-18 FDG, three-dimensional PET scintigraphy is acquired from the skull base to the proximal thighs. Triplanar noncontrast CT scanning is acquired through the same anatomic range for attenuation correction, and image registration with scan parameters optimized to minimize radiation exposure to the patient. PET scintigraphy and CT datasets were fused and displayed on a workstation with multiplanar and projection display capability. FINDINGS: Head and neck soft tissues are unremarkable. There is extensive perihilar confluent nodular change on the left. Morphologically this show some improvement compared to the original CT of May 30 2019. There is mild hypermetabolic parenchymal uptake in this remaining left perihilar tissue. Maximum standard uptake value ranges up to 4.20 from 3.34. No hypermetabolic jean pierre uptake is seen in the hilus on either side or in the mediastinum. No abnormal adrenal uptake is seen. No other abnormal pulmonary parenchymal hypermetabolic uptake is seen. There is a left pleural effusion but no pleural uptake is observed adjacent to the fluid. In the abdomen and pelvis, normal hepatic, splenic, gastrointestinal, and genitourinary FDG accumulation is seen. No abnormal hypermetabolic uptake is seen in the abdomen or pelvis. Incidental note is made of cholelithiasis. IMPRESSION: There is some residual hypermetabolic uptake in the left lung her with post treatment changes. Small left effusion. No other abnormal hypermetabolic uptake is seen. <Electronically signed by Santiago Jenkins > 03/31/20 [id number]
== END ==
LOC: M PLARAD 11:23
PROVIDERS: ATTEND Internal Medicine Hematology & Oncology
DX: C34.02 Malignant neoplasm of left main bronchus (principal); Z92.3 Personal history of irradiation; J90 Pleural effusion, not elsewhere classified
CPT/HCPCS: 78815; A9552

== ENCOUNTER → 2020-04-12 | Outpatient (CLI) | payer MEDICARE ==
[2020-04-12 16:58] LABS: BASO % 0.5 % (0.0-1.0); EOS # 0.2 10^3/uL (0.0-0.5); EOS % 3.7 % (0.0-3.0); HEMATOCRIT 40.3 % (42.0-52.0); HEMOGLOBIN 12.6 g/dl (13.5-17.5); LYMPH % 15.8 % (24.0-44.0); MEAN CORPUSCULAR HGB CONC 31.3 g/dl (32.0-36.5); NEUTROPHILS # 3.9 10^3/uL (1.5-8.5); NEUTROPHILS % 63.5 % (36.0-66.0); PLATELET COUNT, AUTOMATED 187 10^3/uL (150-450); WHITE BLOOD COUNT 6.2 10^3/uL (4.0-10.0)
[2020-04-12 17:15] LABS: ALBUMIN 3.1 GM/DL (3.2-5.2); BILIRUBIN,TOTAL 0.6 MG/DL (0.2-1.0); CALCIUM LEVEL 8.9 MG/DL (8.8-10.2); CREATININE FOR GFR 1.94 MG/DL (0.70-1.30); GLOMERULAR FILTRATION RATE 34.9 (>35); POTASSIUM SERUM 4.5 MEQ/L (3.5-5.1); TOTAL PROTEIN 6.6 GM/DL (6.4-8.2)
== END ==
LOC: M WUC 11:31
PROVIDERS: ATTEND Internal Medicine Hematology & Oncology
DX: C34.90 Malignant neoplasm of unspecified part of unspecified bronchus or lung (principal)

== ENCOUNTER → 2020-04-15 | Outpatient (REF) | payer MEDICARE ==
[2020-04-15 18:20] LABS: FREE T4 1.18 NG/DL (0.76-1.46); THYROID STIMULATING HORMONE 5.07 uIU/ML (0.358-3.740)
== END ==
LOC: M LAB REF 16:56
PROVIDERS: ATTEND Nurse Practitioner Family
DX: E03.9 Hypothyroidism, unspecified (principal)

== ENCOUNTER → 2020-06-15 | Outpatient (CLI) | payer MEDICARE ==
[2020-06-15 16:56] LABS: CREATININE FOR GFR 2.05 MG/DL (0.70-1.30); GLOMERULAR FILTRATION RATE 32.8 (>35)
== END ==
LOC: M WUC 13:18
DX: C34.12 Malignant neoplasm of upper lobe, left bronchus or lung (principal); C15.5 Malignant neoplasm of lower third of esophagus

== ENCOUNTER → 2020-06-28 | Outpatient (CLI) | payer MEDICARE ==
--- NOTE | 2020-06-28 19:01 | REP ---
INDICATION: RESTAGING LEFT UPPER LOBE LUNG C34.12. COMPARISON: Whole-body PET-CT scan dated 03/30/2020. TECHNIQUE: Whole body scanning is performed with the skull base to the upper thighs with 16.7 mCi of F 18 FDG. FINDINGS: Neck and supraclavicular areas: There are no hypermetabolic foci. This is unchanged. Chest: There is linear stranding and scarring extending from the left hilus into the periphery of the left lung as previously. There is hypermetabolic uptake in this area ranging from a standard uptake value of 2.89 to 2.97, borderline hypermetabolic. There is a left pleural effusion that appears slightly decreased in size. There is no uptake in the fusion fluid or in the pleura adjacent to the effusion. This is unchanged. There are no hypermetabolic foci in the mediastinum or right or left tessie or in the right lung. Abdomen, pelvis and upper thighs: There are no hypermetabolic foci. Specifically, there are no adrenal or hepatic foci. This is unchanged. IMPRESSION: There is borderline hypermetabolic uptake in the left parahilar zone, as discussed. No other hypermetabolic foci are identified. This is not significantly changed from the prior study. There is a left pleural effusion appears slightly decreased in size. <Electronically signed by Boone Saucedo > 06/28/20 [id number]
== END ==
LOC: M PLARAD 09:39
PROVIDERS: ATTEND Radiology Radiation Oncology
DX: C34.12 Malignant neoplasm of upper lobe, left bronchus or lung (principal)
CPT/HCPCS: 78815; A9552

== ENCOUNTER → 2020-07-27 | Outpatient (REF) | payer MEDICARE ==
[2020-07-27 19:06] LABS: FREE T4 1.28 NG/DL (0.76-1.46); THYROID STIMULATING HORMONE 1.81 uIU/ML (0.358-3.740)
== END ==
LOC: M LAB REF 17:06
PROVIDERS: ATTEND Nurse Practitioner Family
DX: E03.9 Hypothyroidism, unspecified (principal)

== ENCOUNTER → 2020-10-27 | Outpatient (REF) | payer MEDICARE | LOC: M LAB REF 17:34 | PROVIDERS: ATTEND Nurse Practitioner Family | DX: E83.42 Hypomagnesemia (principal) ==

== ENCOUNTER → 2020-11-01 | Outpatient (CLI) | payer MEDICARE ==
[~2020-11-01] MED LIST changes: +BUPR150T12 PO; +DIGO0.123 PO; +ELIQ2.5T PO; +HYDR10TAB PO; +ISOS10TAB PO; +ISOVUE-370 76% 100ML VIAL As Ordered ONE; +LEVO137T2 PO; +METO1TAB87 PO; +PAXI20TA29 PO; +TORS10TA3 PO; +XARE20TA PO
== END ==
LOC: M RAD 14:28
PROVIDERS: ATTEND Radiology Radiation Oncology
DX: C34.12 Malignant neoplasm of upper lobe, left bronchus or lung (principal); J43.9 Emphysema, unspecified; J84.10 Pulmonary fibrosis, unspecified; I51.7 Cardiomegaly; I25.10 Atherosclerotic heart disease of native coronary artery without angina pectoris; K80.20 Calculus of gallbladder without cholecystitis without obstruction
CPT/HCPCS: 71260; Q9967

== ENCOUNTER → 2020-12-31 | Outpatient (CLI) | payer MEDICARE ==
[~2020-12-31] MED LIST changes: -BUPR150T12 PO; -DIGO0.123 PO; -ELIQ2.5T PO; -HYDR10TAB PO; -ISOS10TAB PO; -ISOVUE-370 76% 100ML VIAL As Ordered ONE; -LEVO137T2 PO; -METO1TAB87 PO; -PAXI20TA29 PO; -TORS10TA3 PO; -XARE20TA PO
--- NOTE | 2020-12-31 18:12 | REP ---
INDICATION: PAIN IN RIGHT ELBOW COMPARISON: None. TECHNIQUE: AP, lateral, bilateral oblique views of the right elbow. FINDINGS: Extensive osteoarthritic degenerative changes include subchondral heterogeneity with cystic changes, joint space narrowing, osteophyte formation and chondrocalcinosis along with significant surrounding soft tissue swelling. No obvious acute fracture or dislocation identified. IMPRESSION: Swelling and extensive arthritic changes. No obvious acute fracture or dislocation. <Electronically signed by Corby Ledesma > 12/31/20 [id number]
== END ==
LOC: M RAD 17:19
PROVIDERS: ATTEND Nurse Practitioner Family
DX: M25.521 Pain in right elbow (principal); M19.021 Primary osteoarthritis, right elbow; M79.89 Other specified soft tissue disorders

== ENCOUNTER → 2021-01-05 | Outpatient (CLI) | payer MEDICARE | LOC: M LABSMTC 10:18 | PROVIDERS: ATTEND Family Medicine | DX: Z11.52 Encounter for screening for COVID-19 (principal) | CPT/HCPCS: C9803; U0003 ==

== ENCOUNTER → 2021-01-23 | Outpatient (CLI) | payer MEDICARE ==
--- NOTE | 2021-01-23 12:59 | REP ---
INDICATION: ACUTE COUGH/ PLEASE CALL DR WITH RESULTS. COMPARISON: 11/19/2019 the latest prior TECHNIQUE: PA and lateral FINDINGS: The abnormal opacity seen previously in the left upper lobe does not appear to be significantly changed possibly slightly increased. Streaky left lower lobe opacities appear to have developed since the last exam. The cardiomediastinal silhouette is essentially unchanged. Chronic fibrotic changes are again seen throughout the right lung status quo. There is chronic bilateral CP angle blunting status quo. There is no change in the osseous structures. IMPRESSION: Abnormal left upper lobe opacity as described above. This was evaluated with CT on 11/01/2020 and all interested parties should read that report. Additionally, this was evaluated by PET-CT on 06/28/2020 and all interested parties should review that report as well. Follow-up may be necessary. Possible new left lower lobe opacities. This could represent a continuum of chronic change or acute disease superimposed upon chronic change. <Electronically signed by Stephon Ross > 01/23/21 [id number]
== END ==
LOC: M RAD 12:18
PROVIDERS: ATTEND Nurse Practitioner Family
DX: R05.1 Acute cough (principal); R06.00 Dyspnea, unspecified

== ENCOUNTER → 2021-01-25 | Outpatient (CLI) | payer MEDICARE ==
[~2021-01-25] MED LIST changes: +BUPR150T12 PO; +ISOVUE-370 76% 100ML VIAL As Ordered ONE; +LEVO137T2 PO; +PAXI20TA29 PO
--- NOTE | 2021-01-25 10:40 | REP ---
INDICATION: ACUTE COUGH, MALIG LUNG CA. COMPARISON: Chest x-ray 01/23/2021, CT 11/01/2020, PET-CT 06/28/2020, CT 01/21/2020 TECHNIQUE: Bolus of 75 mL Isovue 370 scanning through the chest with coronal and sagittal reconstructions. FINDINGS: Study again shows advanced COPD with emphysematous changes. There is some volume loss the left hemithorax, chronic fibrotic changes in the mid and upper lung zone and some retraction of the left left hilum superiorly. There are also fibrotic changes in the left base and some pleural fluid which has increased since the previous study. This appears low density and is somewhat loculated. There is also increase in pleural thickening posteriorly in the right lung base which is low-density and together these areas would contribute to increased density posteriorly in the lower lung zone on recent lateral chest x-ray. The right base posterior and lateral pleural thickening also has low attenuation values suggesting fluid. Scattered areas of fibrosis seen throughout and cylindrical bronchiectatic changes are present bilaterally. There are fibrotic changes adjacent to the major fissure on the right and the subpleural fibrotic changes the laterally in the posterior segment the right upper lobe. Pleural density anteriorly in the right upper lobe is also identified and new. This is seen on image 55 apical bulla on the left and the heavy fibrotic change are again seen with the fibrosis slightly worse at the left apex. The main, right and left pulmonary arteries are prominent in the mediastinum and hilum and taper rapidly consistent with pulmonary artery hypertension, presumably on the basis of COPD. There is pericardial effusion as a new finding compared to October. This has a thickness of 12 mm posteriorly on the left. Left ventricular wall thickening is again noted. Left atrial enlargement seen. AP window precarinal and prevascular nodes have increased in size. Perihilar chronic changes are again seen and perhaps more prominent on the left side. The degree of cardiomegaly is unchanged. Heavily calcified coronary arteries again seen. There is slight elevation of the left diaphragm due to volume loss in the left hemithorax, unchanged. Colonic interposition between the dome of the diaphragm in the right lobe of the liver is again seen. There is cholelithiasis, unchanged. Upper abdomen otherwise unchanged from the 11/01/2020 prior. IMPRESSION: 1. The increased density posteriorly in the lung base on lateral chest is related to bilateral pleural effusions, somewhat loculated, greater left than right. Extensive fibrotic changes in the left base, mid and upper lung zones again seen the same or slightly progressive compared to prior. 2. AP window precarinal and prevascular space nodes increased in size compared to prior. Soft tissue chronic changes at the left hilum again noted and slightly progressive in size. This chronic fibrotic change could be progressive but also could certainly obscure small lesions. 3. Cardiomegaly with left atrial and ventricular enlargement, heavy calcifications in coronary arteries and new pericardial effusion noted, up to 12 mm thickness posteriorly on the left side. 4. Volume loss in left hemithorax due to chronic fibrotic changes with elevation of the left diaphragm and some shift of the heart mediastinum towards the left, chronic. 5. Advanced COPD with bullous emphysematous changes, bronchiectatic change and areas of subpleural fibrosis are noted with 1 new area of a small zone pleural thickening anterior right upper lobe. No other significant change. <Electronically signed by Doyle Clinton > 01/25/21 [id number]
== END ==
LOC: M RAD 08:01
PROVIDERS: ATTEND Nurse Practitioner Family
DX: R05.1 Acute cough (principal); C34.12 Malignant neoplasm of upper lobe, left bronchus or lung; J84.10 Pulmonary fibrosis, unspecified; I31.3 Pericardial effusion (noninflammatory); I51.7 Cardiomegaly; I25.10 Atherosclerotic heart disease of native coronary artery without angina pectoris; J43.9 Emphysema, unspecified

== ENCOUNTER 2021-01-27 13:09 | Inpatient (IN) | payer MEDICARE ==
[~2021-01-27] VITALS: Ht 175.3 cm; Wt 74.1 kg
[~2021-01-27 13:09] MED LIST changes: -BUPR150T12 PO; -ISOVUE-370 76% 100ML VIAL As Ordered ONE; -LEVO137T2 PO; -PAXI20TA29 PO
[2021-01-27] MEDS ORDERED: CARVedilol 3.125 MG TAB PO ONE (13:35)
--- OUTSIDE RECORDS SUMMARY | 2021-01-27 13:59 | CCD ---
Continuity of Care Document (CCD) Created on: 12/27/2020 Noah Quiroz External Reference #: [id number] : [id number] Sex: Male Author Author Noah BOWDEN MD Organization Unknown Address [address] [place] [address] Phone [phone] Care Team Providers Care [employer] Loftsman Name Role Phone Yamileth Madrigal M.D. AUTM [phone] Eliz Zavala AUTM [phone] David Barboza D.O. AUTM [phone] Zohreh Nelson M.D. AUTM Problems Active Problems Provider Date Difficulty breathing Zohreh Nelson M.D. Onset: Cough Zohreh Nelson M.D. Onset: 05/2013 Wheezing Zohreh Nelson M.D. Onset: 05/2013 Pulmonary function studies abnormal Zohreh Nelson M.D. Onset: 08/26/2013 Pulmonary emphysema Zohreh Nelson M.D. Onset: 05/2013 Ex-smoker Zohreh Nelson M.D. Onset: 05/2013 Body Mass Index 26.0-26.9 Adult Steffen Pearson Onset: 08/26/2013 Overweight Zohreh Nelson M.D. Onset: 05/2013 Bronchiolectasis Zohreh Nelson M.D. Onset: Social History Type Date Description Comments Sex Unknown ETOH Use Denies alcohol use Tobacco Use Start: Unknown End: Unknown Patient is a former smoker hx: 2ppd since age 20, quit 8 yrs ago Recreational Drug Use Denies Drug Use Tobacco Use Start: Unknown Quit 2007 Allergies, Adverse Reactions, Alerts Active Allergies Criticality Reaction | Severity Comments Date Tetanus Unable to assess criticality 12/04/2017 Inactive Allergies NKDA Unable to assess criticality 08/26/2013 Medications Active Medications SIG Qnty Indications Ordering Provide r Date Miralax 17GM/Scoop Powder 17 gm twice a day 1020gm R93.3 Keshav Bowden MD 12/04/2019 Famotidine 20mg Tablets 1 by mouth twice a day 60tabs R10.13 Keshav Bowden MD 02/17/2019 Levothyroxine Sodium 125mcg Tablet s 1 by mouth every day Unknown Calcitriol 0.25mcg Capsules 1 by mouth every day Unknown Furosemide 20mg Tablets 1 by mouth a day 14tabs Unknown Nitrostat 0.4mg Tablets Sub a s needed Unknown Tylenol Tablets as needed Unknown Paxil 10mg Tablets 1 by mo uth every day Unknown Bupropion Hydrochloride ER (SR) 150mg Tablets ER 12HR 1 tab by mouth daily Unknown 0 000 Carvedilol 25mg Tablets Unknown Tramadol HCL 50mg Tablets 1-2 every 6 hours as needed for pain after surgery Unknown Immunizations Description No Information Available Vital Signs Date Vital Result Comment 12/08/2020 10:28am BP Systolic 160 mmHg BP Diastolic 80 mmHg Height 69 inches 5'9" Weight 166.00 lb BMI (Body Mass Index) 24.5 kg/m2 [place] Body Weight 160 lb Weight 75.298 kg BSA (Body Surface Area) 1.91 m2 08/04/2020 10:34am BP Systolic 131 mmHg BP Diastolic 71 mmHg Height 69 inches 5'9" Weight 169.00 lb BMI (Body Mass Index) 25.0 kg/m2 [place] Body Weight 160 lb Weight 76.658 kg BSA (Body Surface Area) 1.92 m2 Results Description No Information Available Procedures Date Code Description Status 12/08/2020 25140 Office/Outpatient Established Mo d MDM 30-39 Min Completed 08/04/2020 04966 Office/Outpatient Established Lo w MDM 20-29 Min Completed Medical Devices Description No Information Available Encounters Type Date Location Provider Dx Diagnosis Office Visit 12/08/2020 10:30a [facility] and[facility] Bowden MD D12.2 Benign neoplasm of ascending colon D12.3 Benign neoplasm of transvers e colon D12.4 Benign neoplasm of descendin g colon 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 Office Visit 08/04/2020 10:30a [facility] andreas Bowden MD D12.2 Benign neoplasm of ascending colon D12.3 Benign neoplasm of transvers e colon D12.4 Benign neoplasm of descendin g colon 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 Assessments Date Code Description Provider 12/08/2020 D12.2 Benign neoplasm of ascending col on Keshav Bowden MD 12/08/2020 D12.3 Benign neoplasm of transverse co robin Bowden MD 12/08/2020 D12.4 Benign neoplasm of descending co robin Bowden MD 12/08/2020 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 Abhishek Bowden MD 12/08/2020 C34.00 Malignant neoplasm of unspecifie d main bronchus Keshav Bowden MD 08/04/2020 D12.2 Benign neoplasm of ascending col on Keshav Bowden MD 08/04/2020 D12.3 Benign neoplasm of transverse co robin Bowden MD 08/04/2020 D12.4 Benign neoplasm of descending co robin Bowden MD 08/04/2020 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 He is doing well. no swallowing issues. He has had follow up PET that was reportedly negative for esophageal recurrence. 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 (Colonoscopy9/2020) surface biopsies were free of dysplasia, but these were not removed for technical reasons/difficult position/suboptimal prep. Pt here mainmly to discuss repeat colonoscopy and assess functional status. He is doing well. I offered and recommended repeat colonoscopy to re address colon polyps and remove if amenable. Pathology of colon polyps discussed. If not removed, the probable eventual transition to colon cancer over 3-5 years (or earlier) has been discussed. He understands the risks but he steadfastly declines repeat colonoscopy again today.--He agrees to return for rediscussion in 6 months, but he sais he will not change his mind. * Follow up:* 6 months Functional Status Description No Information Available Mental Status Description No Information Available Referrals Description No Information Available
--- OUTSIDE RECORDS SUMMARY | 2021-01-27 13:59 | CCD ---
Author Author [facility] Organization [facility] Address Unknown Phone Unavailable Care Team Providers Care Java Lead Developer Name Role Phone Ibrahim, Jami PROOF READER Unavailable Unavailable Ibrahim, Jami PROOF READER Unavailable Unavailable Ibrahim, Jami PROOF READER Unavailable Unavailable Ibrahim, Jami PROOF READER Unavailable Unavailable Ibrahim, Jami PROOF READER Unavailable Unavailable Ibrahim, Jami PROOF READER Unavailable Unavailable Ibrahim, Jami PROOF READER Unavailable Unavailable Ibrahim, Jami PROOF READER Unavailable Unavailable Ibrahim, Jami PROOF READER Unavailable Unavailable Ibrahim, Jami PROOF READER Unavailable Unavailable Ibrahim, Jami PROOF READER Unavailable Unavailable Ibrahim, Jami PROOF READER Unavailable Unavailable Ibrahim, Jami PROOF READER Unavailable Unavailable VIKTOR SINGH MD Unavailable Unavailable VIKTOR SINGH MD Unavailable Unavailable VIKTOR SINGH MD Unavailable Unavailable VIKTOR SINGH MD Unavailable Unavailable VIKTOR SINGH MD Unavailable Unavailable VIKTOR SINGH MD Unavailable Unavailable VIKTOR SINGH MD Unavailable Unavailable VIKTOR SINGH MD Unavailable Unavailable VIKTOR SINGH MD Unavailable Unavailable VIKTOR SINGH MD Unavailable Unavailable VIKTOR SINGH MD Unavailable Unavailable VIKTOR SINGH MD Unavailable Unavailable VIKTOR SINGH MD Unavailable Unavailable VIKTOR SINGH MD Unavailable Unavailable VIKTOR SINHG MD Unavailable Unavailable VIKTOR SINGH MD Unavailable Unavailable VIKTOR SINGH MD Unavailable Unavailable VIKTOR SINGH MD Unavailable Unavailable VIKTOR SINGH MD Unavailable Unavailable REINDL, VIKTOR SALOMON Unavailable Unavailable REINDL, VIKTOR SALOMON Unavailable Unavailable REINDL, VIKTOR SALOMON Unavailable Unavailable REINDL, VIKTOR SALOMON Unavailable Unavailable REINDL, VIKTOR SALOMON Unavailable Unavailable REINDL, VIKTOR SALOMON Unavailable Unavailable REINDL, VIKTOR SALOMON Unavailable Unavailable REINDL, VIKTOR SALOMON Unavailable Unavailable REINDL, VIKTOR SALOMON Unavailable Unavailable REINDL, VIKTOR SALOMON Unavailable Unavailable REINDL, VIKTOR SALOMON Unavailable Unavailable REINDL, VIKTOR SALOMON Unavailable Unavailable REINDL, VIKTOR SALOMON Unavailable Unavailable REINDL, VIKTOR SALOMON Unavailable Unavailable REINDL, VIKTOR SALOMON Unavailable Unavailable REINDL, VIKTOR SALOMON Unavailable Unavailable REINDL, VIKTOR SALOMON Unavailable Unavailable REINDL, VIKTOR SALOMON Unavailable Unavailable REINDL, VIKTOR SALOMON Unavailable Unavailable REINDL, VIKTOR SALOMON Unavailable Unavailable REINDL, VIKTOR SALOMON Unavailable Unavailable REINDL, VIKTOR SALOMON Unavailable Unavailable REINDL, VIKTOR SALOMON Unavailable Unavailable Fish, [facility], PA-C Unavailable Unavailabl e Fish, [facility], PA-C Unavailable Unavailabl e Fish, [facility], PA-C Unavailable Unavailabl e Fish, [facility], PA-C Unavailable Unavailabl e Fish, [facility], PA-C Unavailable Unavailabl e Fish, [facility], PA-C Unavailable Unavailabl e Fish, [facility], PA-C Unavailable Unavailabl e Fish, [facility], PA-C Unavailable Unavailabl e Fish, [facility], PA-C Unavailable Unavailabl e Fish, [facility], PA-C Unavailable Unavailabl e Fish, [facility], PA-C Unavailable Unavailabl e Fish, [facility], PA-C Unavailable Unavailabl e Fish, [facility], PA-C Unavailable Unavailabl e Fish, [facility], PA-C Unavailable Unavailabl e Fish, [facility], PA-C Unavailable Unavailabl e Fish, [facility], PA-C Unavailable Unavailabl e Fish, [facility], PA-C Unavailable Unavailabl e Fish, [facility], PA-C Unavailable Unavailabl e Fish, [facility], PA-C Unavailable Unavailabl e Fish, [facility], PA-C Unavailable Unavailabl e Fish, [facility], PA-C Unavailable Unavailabl e [facility], [facility] Unavailable Unavailabl e Fish, Josselyn Damian [facility], PA-C Unavailable Unavailabl e Fish, Josselyn aDmian [facility], PA-C Unavailable Unavailabl e Fish, Josselyn Daiman [facility], PA-C Unavailable Unavailabl e Fish, Josselyn Lorenzanaen [facility], PA-C Unavailable Unavailabl e Fish, Josselyn Lorenzanaen [facility], PA-C Unavailable Unavailabl e Fish, Josselyn Lorenzanaen [facility], PA-C Unavailable Unavailabl e Fish, Josselyn Lorenzanaen [facility], PA-C Unavailable Unavailabl e Fish, Josselyn Nati [facility], PA-C Unavailable Unavailabl e Fish, Josselyn Nati [facility], PA-C Unavailable Unavailabl e Fish, Josselyn Lorenzanaen [facility], PA-C Unavailable Unavailabl e Fish, Josselyn Lorenzanaen [facility], PA-C Unavailable Unavailabl e Fish, Josselyn Damian [facility], PA-C Unavailable Unavailabl e Fish, Josselyn Damian [facility], PA-C Unavailable Unavailabl e Fish, Josselyn Damian [facility], PA-C Unavailable Unavailabl e MIX, ALONZO SALOMON Unavailable Unavailable MIX, ALONZO SALOMON Unavailable Unavailable MIX, ALONZO SALOMON Unavailable Unavailable MIX, ALONZO SALOMON Unavailable Unavailable MIX, ALONZO SALOMON Unavailable Unavailable MIX, ALONZO SALOMON Unavailable Unavailable MIX, ALONZO SALOMON Unavailable Unavailable MIX, ALONZO SALOMON Unavailable Unavailable MIX, ALONZO SALOMON Unavailable Unavailable MIX, ALONZO SALOMON Unavailable Unavailable MIX, ALONZO SALOMON Unavailable Unavailable MIX, ALONZO SALOMON Unavailable Unavailable MIX, ALONZO SALOMON Unavailable Unavailable MIX, ALONZO SALOMON Unavailable Unavailable MIX, ALONZO SALOMON Unavailable Unavailable MIX, ALONZO SALOMON Unavailable Unavailable MIX, ALONZO SALOMON Unavailable Unavailable MIX, ALONZO SALOMON Unavailable Unavailable MIX, ALONZO SALOMON Unavailable Unavailable MIX, ALONZO SALOMON Unavailable Unavailable MIX, ALONZO SALOMON Unavailable Unavailable MIX, ALONZO SALOMON Unavailable Unavailable MIX, ALONZO SALOMON Unavailable Unavailable MIX, ALONZO SALOMON Unavailable Unavailable MIX, ALONZO SALOMON Unavailable Unavailable MIX, ALONZO SALOMON Unavailable Unavailable MIX, ALONZO SALOMON Unavailable Unavailable MIX, ALONZO SALOMON Unavailable Unavailable MIX, ALONZO SALOMON Unavailable Unavailable MIX, ALONZO SALOMON Unavailable Unavailable MIX, ALONZO SALOMON Unavailable Unavailable MIX, ALONZO SALOMON Unavailable Unavailable MIX, ALONZO SALOMON Unavailable Unavailable MIX, ALONZO SALOMON Unavailable Unavailable MIX, ALONZO SALOMON Unavailable Unavailable MIX, ALONZO SALOMON Unavailable Unavailable MIX, ALONZO SALOMON Unavailable Unavailable MIX, ALONZO SALOMON Unavailable Unavailable Dy, Anyi SALOMON Unavailable Unavailable Dy, Anyi SALOMON Unavailable Unavailable Dy, Anyi SALOMON Unavailable Unavailable Dy, Anyi SALOMON Unavailable Unavailable Dy, Anyi SALOMON Unavailable Unavailable Dy, Anyi SALOMON Unavailable Unavailable Dy, Anyi SALOMON Unavailable Unavailable Dy, Anyi SALOMON Unavailable Unavailable Dy, Anyi SALOMON Unavailable Unavailable Dy, Anyi MD Unavailable Unavailable PAL, GABE PA Unavailable Unavailable PAL, GABE PA Unavailable Unavailable PAL, GABE PA Unavailable Unavailable PAL, GABE PA Unavailable Unavailable PAL, GABE PA Unavailable Unavailable PAL, GABE PA Unavailable Unavailable PAL, GABE PA Unavailable Unavailable PAL, GABE PA Unavailable Unavailable PAL, GABE PA Unavailable Unavailable PAL, GABE PA Unavailable Unavailable PAL, GABE PA Unavailable Unavailable PAL, GABE PA Unavailable Unavailable PAL, GABE PA Unavailable Unavailable PAL, GABE PA Unavailable Unavailable PAL, GABE PA Unavailable Unavailable PAL, GABE PA Unavailable Unavailable PAL, GABE PA Unavailable Unavailable PAL, GABE PA Unavailable Unavailable PAL, GABE PA Unavailable Unavailable PAL, GABE PA Unavailable Unavailable PAL, GABE PA Unavailable Unavailable PAL, GABE PA Unavailable Unavailable PAL, GABE PA Unavailable Unavailable PAL, GABE PA Unavailable Unavailable PAL, GABE PA Unavailable Unavailable PAL, GABE PA Unavailable Unavailable PAL, GABE PA Unavailable Unavailable PAL, GABE PA Unavailable Unavailable PAL, GABE PA Unavailable Unavailable PAL, GABE PA Unavailable Unavailable PAL, GABE PA Unavailable Unavailable PAL, GABE PA Unavailable Unavailable PAL, GABE PA Unavailable Unavailable PAL, GABE PA Unavailable Unavailable PAL, GABE PA Unavailable Unavailable PAL, GABE PA Unavailable Unavailable Re-disclosure Warning The records that you are about to access may contain information from federally-assisted alcohol or drug abuse programs. If such information is present, then the following federally mandated warning applies: This information has been disclosed to you from records protected by federal confidentiality rules (42 CFR part 2). The federal rules prohibit you from making any further disclosure of this information unless further disclosure is expressly permitted by the written consent of the person to whom it pertains or as otherwise permitted by 42 CFR part 2. A general authorization for the release of medical or other information is NOT sufficient for this purpose. The Federal rules restrict any use of the information to criminally investigate or prosecute any alcohol or drug abuse patient.The records that you are about to access may contain highly sensitive health information, the redisclosure of which is protected by Article 27-F of the [place] Public [employer] law. If you continue you may have access to information: Regarding HIV / AIDS; Provided by facilities licensed or operated by the [place] Office of Mental Health; or Provided by the [place] Office for People With Developmental Disabilities. If such information is present, then the following [place] mandated warning applies: This information has been disclosed to you from confidential records which are protected by state law. State law prohibits you from making any further disclosure of this information without the specific written consent of the person to whom it pertains, or as otherwise permitted by law. Any unauthorized further disclosure in violation of state law may result in a fine or long term sentence or both. A general authorization for the release of medical or other information is NOT sufficient authorization for further disc losure. Family History Family Member Name Family Member Gender Family Member Status Date o f Status Description Data Source(s) Unknown Unknown Problem [facility] ([facility]) Unknown Male Problem [facility] ([facility], ) () Encounters Encounter Providers Location Date Indications Data Source(s ) Outpatient Attender: VIKTOR Varner/Artie/Mauro/Safia dl 12/08/2020 10:30:00 AM EDT [facility] ([facility] Outpatient Attender: ALONZO MAGALLANESeferrer: Anyi Mann MD [facility] 11/09/2020 12:00:00 AM [facility] Outpatient Attender: VIKTOR Varner/Artie/Mauro/Rein dl 08/04/2020 10:30:00 AM EDT [facility] ([facility] ) Outpatient Attender: ALONZO Dialloerrghulam: Anyi Mann MD [facility] 07/06/2020 12:00:00 AM EDT Malignant neoplasm of upper lobe, left bronchus or maria g [facility] Malignant neoplasm of upper lobe, left b ronchus or lung Outpatient Attender: GABE kaur 06/14/2020 01:30:00 PM EDT [facility] ([facility]) Outpatient Attender: ALONZO PARNELL MDReferrer: Anyi Mann MD [facility] 04/06/2020 12:00:00 AM EST Malignant neoplasm of upper lobe, left bronchus or maria g [facility] Malignant neoplasm of upper lobe, left b ronchus or lung Outpatient Attender: ALONZO MAGALLANESeferrer: Anyi Mann MD [facility] 03/23/2020 12:00:00 AM EST - 03/23/2020 02:45:20 PM EST Malignant neoplasm of upper lobe, left bronchus or lung [facility] Malignant neoplasm of upper lobe, left b ronchus or lung Outpatient Attender: Nati CABRALES PA-C Physical Therapy 02/04/2020 12:30:00 PM EST [facility] ([facility]) OFFICE OUTPATIENT NEW 30 MINUTES Attender: Nati CABRALES PA-C Physical Therapy 01/27/2020 09:45:00 AM EST [facility] ([facility]) Outpatient Attender: ALONZO MAGALLANESeferrer: Anyi Mann MD [facility] 01/27/2020 12:00:00 AM EST Malignant neoplasm of upper lobe, left bronchus or [facility] Malignant neoplasm of upper lobe, left b ronchus or lung Outpatient Attender: Jami novak 01/23/2020 02:35:00 PM EDT [facility] ([facility]) Outpatient Attender: VIKTOR Varner/Artie/Mauro/Safia balderrama 12/04/2019 01:00:00 PM EDT [facility] ([facility]) Outpatient Attender: ALONZO MAGALLANESeferrer: Anyi Mann MD [facility] 10/28/2019 12:00:00 AM EDT Malignant neoplasm of upper lobe, left bronchus or maria g [facility] Malignant neoplasm of upper lobe, left b ronchus or lung Immunizations Vaccine Date Status Description Data Source(s) COVID-19 VACCINE Moderna 06/25/2020 12:00:00 AM EDT completed [facility] Vaccine Series Complete: YESThis Data wa s Submitted to [facility] Via imedo. COVID-19 VACCINE Moderna 05/28/2020 12:00:00 AM EST completed [facility] Vaccine Series Complete: NOThis Data was Submitted to [facility] Via imedo. Medications Medication Brand Name Start Date Product Form Dose Route Admi nistrative Instructions Pharmacy Instructions Status Indications Reaction Description Data Source(s) Cephalexin 500 MG Oral Tablet Cephalexin 06/14/2020 12:00:00 AM EDT ORAL active MED[facility] ([facility]) Cephalexin 500 MG Oral Capsule Cephalexin 500 MG Oral Capsule (KEFLEX) Cephalexin 500 MG Oral Capsule (KEFLEX) 01/23/2020 12:00:00 AM EDT 500 mg Oral active Take 500 mg by mouth Three times daily [facility] POLYETHYLENE GLYCOL 3350 142 MG/ML Oral Solution [Miralax] M iralax 12/04/2019 12:00:00 AM EDT active M EDENT ([facility], ) Magnesium Hydroxide 80 MG/ML Oral Suspension Milk Of Magnesi a 12/04/2019 12:00:00 AM EDT ORAL active M EDENT ([facility], ) POLYETHYLENE GLYCOL 3350 105 MG/ML / Pot assium Chloride 0.54326 MEQ/ML / Sodium Bicarbonate 0.017 MEQ/ML / Sodium Chloride 0.0479 MEQ/ML Oral Solution [TriLyte] Trilyte 12/04/2019 12:00:00 AM EDT active MED[facility] ([facility], ) Tamsulosin hydrochloride 0.4 MG Oral Cap rajan Tamsulosin HCl 0.4 MG Oral Capsule (FLOMAX) Tamsulosin HCl 0.4 MG Oral Capsule (FLOMAX) 08/24/2019 12:00 :00 AM EDT [facility] Simvastatin 20 MG Oral Tablet Simvastatin 20 MG Oral T ablet (ZOCOR) Simvastatin 20 MG Oral Tablet (ZOCOR) 07/27/2019 12:00:00 AM EDT [facility] Allopurinol 100 MG Oral Tablet Allopurinol 100 MG Oral Tablet (ZYLOPRIM) Allopurinol 100 MG Oral Tablet (ZYLOPRIM) 05/19/2019 12:00:00 [facility] 120 MG / Eicosapent aenoic Acid 180 MG Oral Capsule Fish Oil 1000 MG Oral Capsule Fish Oil 1000 MG Oral Capsule 09/11/2012 12:00:00 AM EDT Oral aborted Take by mouth [facility] Ipratropium-Albuterol (COMBIVENT IN) 02/19/2012 12:00:00 A M EST Inhalation aborted Inhale into the lung s PRN [facility] Finasteride 5 MG Oral Tablet Finasteride 5 MG Oral Tab let (PROSCAR) Finasteride 5 MG Oral Tablet (PROSCAR) 5 mg Oral aborted Take 5 mg by mouth daily [facility] Probiotic Product (PROBIOTIC DAILY PO) Oral aborted Take by mouth [facility] Aspirin 325 MG Oral Tablet Aspirin 325 MG Oral Tablet Or al aborted Take by mouth [facility] Insurance Providers Payer name Policy type / Coverage type Policy ID Covered democrat ID Covered democrat's relationship to dc Policy Dc Plan Information MEDICARE COMPLETE [id number] SP [id number] MEDICARE COMPLETE [id number] SP [id number] MEDICARE COMPLETE [id number] SP [id number] [employer] MEDICARE [id number] S [id number] UHC UNITED MEDICARE COMPLETE G [id number] Self [id number] MEDICARE COMPLETE [id number] SP [id number] [facility] [id number] undefined [id number] [facility] [place] [id number] undefined [id number] [facility] [id number] Self [id number] [facility] Commercial [id number] Self [id number] [facility] Health Maintenance Organization (HMO) [id number] Self [id number] [facility] Commercial [id number] Self MEDICARE COMPLETE [id number] SP [id number] [facility] [id number] SP [id number] MEDICARE COMPLETE-[facility] P [id number] S [id number] MEDICARE COMPLETE-[facility] P [id number] S [id number] MEDICARE COMPLETE-UHC O [id number] S [id number] MEDICARE COMPLETE [id number] SP [id number] UNHC MEDICARE COMPLETE - O/P [id number] 18 [id number] MEDICARE ADVANTAGE/REPLACEMENT [id number] S [id number] [facility]/Medicare Solu Commercial [id number] Self [id number] Problems, Conditions, and Diagnoses Code Display Name Description Problem Type Effective Dates Data Source(s) 484950065 Pure hypercholesterolemia Pure hypercholesterolemia Pr oblem 01/27/2020 12:00:00 AM EST [facility] ([facility]) [id number] Essential hypertension Essential hypertension Problem 01/27/2020 12:00:00 AM EST [facility] ([facility]) Surgeries/Procedures Procedure Description Date Indications Data Source(s) OFFICE OUTPATIENT VISIT 25 MINUTES 12/08/2020 12:00:00 AM EDT [facility] ([facility]) OFFICE OUTPATIENT VISIT 25 MINUTES 12/08/2020 12:00:00 AM EDT [facility] ([facility]) OFFICE OUTPATIENT VISIT 15 MINUTES 08/04/2020 12:00:00 AM EDT [facility] ([facility]) Results ID Date Data Source [id number] 11/09/2020 02:39:03 PM EDT [facility] Name Value Range Interpretation Code Description Data Loulou rce(s) Supporting Document(s) Progress Note [facility] IKZSWl3eRuSMVeBw33/HZZcpIJIkw2TlDApnKAa1WYclTXPkU3AqGCX5bR8xILN1XIjQIuWoApRaAMQ5 lbm [file] Fo4PVyE6WFC3eXPjEu9WEgfmPcVOZhEzJH2TANe= ID Date Data Source [id number] 07/06/2020 03:41:25 PM EDT [facility] Name Value Range Interpretation Code Description Data Loulou rce(s) Supporting Document(s) Progress Note [facility] TYTMWg4fQyAWXmYa70/NZEfvRQWkx4BcNCutNLp0XIwhDCCrL7ScHEN4dL6jMWI8DCkPCjMeFvIgAEMb lbm [file] wxLLIGRxMpGR2BLBl= ID Date Data Source [id number] 04/07/2020 01:00:13 PM [facility] Name Value Range Interpretation Code Description Data Loulou rce(s) Supporting Document(s) Progress Note [facility] KCEMPq6xYfANBgTl81/MLNikJBAnw5AqPFsjQSy7WGmsAEHuC3LcLVT5cN9fLWE4XYqZYnXiWsQpVPQh lbm [file] AgICAgICAgICAgICAgICAgICAgICAgICAgICAgICAgICAgICAgICAgICAgICAgICAgICAgICAgICAgIC AgICAgICAgICAgICAgICAgICAgICAgICAgICAgICAgDQogICAgICAgICAgICAgICAgICAgICAgICAgIC AgICAgICAgICAgICAgICAgICAgICAgICAgICAgICAg ICAgICAgICAgICAgICAgICAgICAgICAgICAgICAgICAgICAgICAgICAgDQogICAgICAgICAgICAgICAg ICAgICAgICAgICAgICAgICAgICAgICAgICAgICAgICAgICAgICAgICAgICAgICAgICAgICAgICAgICAg ICAgICAgICAgICAgICAgICAgICAgICAgDQogICAgIC AgICAgICAgICAgICAgICAgICAgICAgICAgICAgICAgICAgICAgICAgICAgICAgICAgICAgICAgICAgIC AgICAgICAgICAgICAgICAgICAgICAgICAgICAgICAgICAgDQogICAgICAgICAgICAgICAgICAgICAgIC AgICAgICAgICAgICAgICAgICAgICAgICAgICAgICAg ICAgICAgICAgICAgICAgICAgICAgICAgICAgICAgICAgICAgICAgICAgICAgDQogICAgICAgICAgICAg ICAgICAgICAgICAgICAgICAgICAgICAgICAgICAgICAgICAgICAgICAgICAgICAgICAgICAgICAgICAg ICAgICAgICAgICAgICAgICAgICAgICAgICAgDQogIC AgICAgICAgICAgICAgICAgICAgICAgICAgICAgICAgICAgICAgICAgICAgICAgICAgICAgICAgICAgIC AgICAgICAgICAgICAgICAgICAgICAgICAgICAgICAgICAgICAgDQogICAgICAgICAgICAgICAgICAgIC AgICAgICAgICAgICAgICAgICAgICAgICAgICAgICAg ICAgICAgICAgICAgICAgICAgICAgICAgICAgICAgICAgICAgICAgICAgICAgICAgDQogICAgICAgICAg ICAgICAgICAgICAgICAgICAgICAgICAgICAgICAgICAgICAgICAgICAgICAgICAgICAgICAgICAgICAg ICAgICAgICAgICAgICAgICAgICAgICAgICAgICAgDQ ogICAgICAgICAgICAgICAgICAgICAgICAgICAgICAgICAgICAgICAgICAgICAgICAgICAgICAgICAgIC QeWOLvANIvXRMpQABaPRMqILFnDXInWVScIODjFMPgFPRrEJNpOCNaPVn8A5bbRPUbHNSbYM2jHWo0Pm 8+JNsNYmQpEXU1eeGdgN9HAO3id2MwSXocKOJrl1Mc OJa1GG7GZTDnDIhfSN4ZNXpocw8YCUDlYXLuuEAUe6dkMbBhKZE2CTMlYpfuHQ2XGARnW1bdyfLyBERx MSVKWZvfWMSJXHHdDJTtLaIfZQieAU5Bp3TsnTYmKUo+Dg4GNM8dj0HgNSvfEzHwZF0xmu8ELBzZYtTg E4XitfE5VBD0VBFhYq2XWBVxEBIjlICyFLRqIERLNu NtF2LvtK10HNKJSp6+UEosgqHuSjtZCxC0QLOqa8WeWWy1KW2TYHCyITj7rSZmNXQpZ9Pen3VaYt34QO DwZqxiTGqlvLDpxEJPCR6xhCruRNTiHOXkME8oEm8eKTIvLCDfFrAvJEZGGN9UINOvRAOyqHHhHVAhKX HOAH1HFSabRHS6WRNeqeCmaDPqQIwhHR6YJWAdhsZs MjcgMCBSDQo+Xo7RRV3kl5VpGXj3MWGhn1MqVVf9BZ3LICLxWLuyLZWcEC1be4FsG2A0MoB8sSLoR2sy zmpqC5HfnmGijiNjJTAgGDDqAJ1QYN3MTW7LQVXuAFuhHB0CTUB2CBf5CvImSuwgNRLcBTZ9ET7iSUqv YV8GKXd5Y9ZnN2WJNDZgCFPHZLHzpVU0IPFIEl5NV3 WIXloFWTSENt4JXnEzN7WRK8aFR39JXG2XSQS+PiANCj4+NKoyknEwXunLPpT4OKZaz8VuPFh4WZ5WOV VyQUmgLW3XRHWhfP7zCHbfIL5EKbGvCZChKSVRNhCwL06tjLXmFLj6B1PyOuWsAYVxFhywNZFoYRqfWb FtZXMgWyBdDQogID4+ID4+ZMqtVM8OHEpeeaPfAHGr Pd7HVSKtIZBdMI6qMRAaPJQdZ0C8oRrmKIDBEbJaB2pmpbmfII6vFODcQ648oWlcvdClPYR8XLHhTb3N JFBmKWC7UILxnJChOkFfKXTQHRzpXU1FdGAzBEZ3vR1qPBhlLNHjAQAwI1kAEqPieKopUA96qUgkhbNn bCBdDQo+Ak2NRY2ui9ChVJk8ejRjCKwzEHZbJSmdPW IqWIByRKRnENS5KRW4AWFVKyPdDDGyVQCqXHkvLOUiGCSmwg4FQPZeQMLuBQDeXVWmLLMyBNGyVCeeLQ FoCLP5UuZvPTUaTIKmXZ7ZDyMsIFVlHJDwLKytNIIhSUIsfg2NZCUySVYjMgS7EjYiWIViBBNnBDhvHS VzKHH1WLdwXGUqXORrKA9YKiQxORPhUJB7JQCkRNRq KOGddq5OETEyQNSaBrskDGZkMLCaKVHuCYvjPIVnJDI0LRO2BIUaDWKgQF2RLlLfOMNiIFi4SRAwTHEs GYXlqw6IMHXhCBSmEWZ2ClCaYVBoCRGjWOiyHUOiBALgZDQ7TYXhSZLjPF2IGcHtKNBdWXWnPQMuZNBj TNBzab8VNVMaFSEmBWY8KqMfWPCjZOVkUYryEFEeCS RjHWO0WCQmUBRhAF8CNfTyBKIvCYX6XYcjFPBiYDOtum1KFDBwINZtFNiePjSgSOEbOYJkZQslJUXnLZ ScMeU7GPEwXVEuWX9JTzUnGQGzLfK6WDJrZXUeRCTwla2DJYUnHHDyRqqvBSDiMRDzEENxNBicMRXvEB X7NJLuYOVjTPLjBM4OPeXmIQFsTkZwAKGoDFHmTDZu xw4IBAAcAFVhGGI3JGLrNMInNZQfVDeyUSXiNCE3HkW4VXPtXQNyXI9SXsUmJRZsFaD7HDJdUJQgAIMt vr0UUXHrNRRyGDmsTmMmWMGkSGZpAVwoNVTqATF8Doa1EOGrNYJeHK2SMdNgJMRpNzv5JOHwZRGoTRYr ks0GMVDfLQNuSrt3QWBdWJSnDOJmBTu7dpOvpKQpXG k0GT2GC2LuwhHaMjCJWx8Dh931OAC2PEZkOw4ZG7isPm6rBSObQFMDDi7OXOq0VOE8UbY6QnQpRMD0SN y4MIAgWHDnDyT7SCUuPnDuFgG+RMskYjyqUgCiQIU7BDlbMXzoFGQgNELjYym2KSU9LAT1JR9mJNRPTt 4+ZUatxZSrxWwvUGHWVoE3UOCzINqpICYVHf7K ID Date Data Source [id number] 03/23/2020 01:37:[address] [facility] Name Value Range Interpretation Code Description Data Loulou rce(s) Supporting Document(s) Progress Note [facility] DJFNMd5bWjRRWhVs56/FVZxlDPOgo8CfJAmsNSk7SRztRVGwI4UhBTJ2cD7kBLE3NFhAOvAgLnFqTrA9 lbm [file] 0K ID Date Data Source [id number] 02/12/2020 12:00:00 AM [facility] Anyi Dy Patient Name: Brian QUIROZ And Darien Cortés Date of : [address] [address]- Date of Exam: 02/12/2020#: Fax: [phone] EXAM: MRI BRAIN WITHOUT CONTRASTPROCEDURE INFORMATION:Exam: MR Head Without ContrastExam date and time: 02/12/2020 9:35 AM Age: 89 years oldClinical indication: H/o esophageal and lung CATECHNIQUE: Imaging protocol: MR of the head without contrast.COMPARISON: No relevant prior studies available.FINDINGS:Brain: There is low attenuation abnormality in the periventricular whitematter, likely reflecting chronic microvascular ischemic di sease. There ismoderate cerebral atrophy.Cerebral ventricles: Normal. No ventriculomegaly.Bones/joints: Unremarkable.Paranasal sinuses: Normal as visualized. No acute sinusitis.Mastoid air cells: Normal as visualized. No mastoid effusion.Orbits: Unremarkable.Soft tissues: Unremarkable.IMPRESSION:No acute intracranial findings identified. Please refer to incidentalfindings in body of report.Thank you for allowing us to participate in the care of your patient.Dictated and Authenticated by: Xavier Louis MD 02/12/2020 12:02 PM [facility] [facility] [place]/Cesar you for referring ÁNGELA QUIROZ to our office. Electronically Signed - [facility] 02/12/20 14:20 Name Value Range Interpretation Code Description Data Loulou rce(s) Supporting Document(s) ID Date Data Source [id number] 02/06/2020 02:18:00 PM EST [facility] ([facility]) Name Value Range Interpretation Code Description Data Loulou rce(s) Supporting Document(s) Erythrocyte sedimentation rate by Westergren method 69 mm/hr 0-20 [facility] ([facility]) C reactive protein [Mass/volume] in Serum or Plasma by High sensitivity method 7.28 mg/dL 0.00-0.30 [facility] ([facility]) <content>note:<nlbl:demographic_changed> </content>
<content></content> ID Date Data Source [id number] 02/06/2020 02:18:00 PM EST [facility] ([facility]) Name Value Range Interpretation Code Description Data Loulou rce(s) Supporting Document(s) White Blood Count 6.6 10 4.0-10.0 [facility] ([facility]) Hemoglobin 11.7 g/dL 13.5-17.5 [facility] ([facility]) Red Blood Count 3.89 10 4.30-6.10 [facility] ([facility]) Mean Corpuscular Hemoglobin 30.1 pg 27.0-33.0 [facility] ([facility]) Hematocrit 37.2 % 42.0-52.0 [facility] ([facility] Mean Corpuscular Volume 95.6 fl 80.0-96.0 M EDENT ([facility]) Mean Corpuscular HGB Conc 31.5 g/dL 32.0-36.5 [facility] ([facility]) Platelet Count, Automated 386 10 150-450 [facility] ([facility]) Red Cell Distribution Width 13.6 % 11.5-14.5 [facility] ([facility]) Nucleated Red Blood Cell % 0.0 % 0-0 [facility] ([facility]) ID Date Data Source [id number] 01/28/2020 12:00:00 AM EST [facility] Nati Rosario Pa-C Patient Name: ÁNGELA QUIROZ [address] [facility] 1930[facility] [address] Date of Exam: 01/28/2020#: Fax: [phone] EXAM: CT UPPER LEFT EXTREMITY WITHOUT CONTRASTCLINICAL INFORMATION: Pain and swelling after trauma one week ago.Low dose 64 slice helical scanning through the left elbow was obtainedusing 1 mm increments and reconstructed in both coronal and sagittalplanes. 3D reconstructions were also obtained. Post processing wasperformed at the physician's workstation.There are no prior left elbow CT examinations for comparison. Prior plainfilm examination 01/23/2020 showed chronic changes with chondrocalcinosis,intraarticular loose bodies, and marginal osteophytosis.There is advanced asymmetric radiocarpal joint space narrowing withasymmetric ulnar trochlear joint space narrowing. There is heavy marginalosteophytosis throughout all articular margins. There is subchondralsclerosis involving the radial capitular joint seen in conjunction withsubchondral cyst formation of varying sizes. Subchondral cyst formation isalso seen next heaviest involving the olecranon. There are numberable softtissue calcifications surrounding the elbow joint with numerable looseintraarticular bodies anteriorly and particularly posteriorly. There is nodefinite evidence of an acute fracture, however, any of the ossificdensities seen adjacent to any of the osteophytes could in fact representan acute fracture. There is evidence of a complex appearing joint effusionwhich is very difficult to evaluate by CT. Tendinous and ligamentousintegrity cannot be well assessed by CT. Diffuse soft tissue swelling isalso suspected; and again, poorly evaluated by CT.IMPRESSION:There are marked chronic changes and other findings as described above. Iffurther investigation of the soft tissues is warranted, then I wouldrecommend an MRI.Accredited by the [employer] in [place].MANAN Sparrow/Cesar you for referring ÁNGELA QUIROZ to our office. Electronically Signed - DIMITRIOS HART DO 01/29/20 13:52 Name Value Range Interpretation Code Description Data Loulou rce(s) Supporting Document(s) ID Date Data Source [id number] 01/27/2020 02:26:30 PM [facility] Name Value Range Interpretation Code Description Data [facility] rce(s) Supporting Document(s) Progress Note [facility] [id number] [facility] [file] [id number] [file] [id number]= ID Date Data Source [id number] 01/27/2020 12:13:00 PM EST [facility] ([facility]) Name Value Range Interpretation Code Description Data Loulou rce(s) Supporting Document(s) 11-Deoxycortisol [Mass/volume] in Serum or Plasma 0.01 ug/dL [facility] ([facility]) This test was developed and its performa nce characteristics determined by [facility]. It has not been cleared or approved by the Food and Drug Administration. Reference Range: Children and Adults: Baseline: Less than 1 Post Metyrapone: Single Dose Test: 7 - 18 Multiple Dose Test: 10 - 25 Performed at: [facility] [address] [place] [address] [id number] Form Carpenter: Cordell Morrissey MD, Phone: [phone] C reactive protein [Mass/volume] in Serum or Plasma by High sensitivity method 18.80 mg/dL 0.00-0.30 [facility] ([facility]) <content>note:<nlbl:demographic_changed> </content>
<content></content> Urate [Mass/volume] in Serum or Plasma 5.1 mg/dL 3.5-7.2 [facility] ([facility]) <content>note:<nlbl:demographic_changed> </content>
<content></content> Erythrocyte sedimentation rate by Westergren method 66 mm/hr 0-20 [facility] ([facility]) ID Date Data Source [id number] 01/27/2020 12:13:00 PM EST [facility] ([facility]) Name Value Range Interpretation Code Description Data Loulou rce(s) Supporting Document(s) Red Blood Count 3.85 10 4.30-6.10 [facility] ([facility]) White Blood Count 7.6 10 4.0-10.0 [facility] ([facility]) Hematocrit 37.3 % 42.0-52.0 [facility] ([facility]) Mean Corpuscular Volume 96.9 fl 80.0-96.0 M ED[facility] ([facility]) Hemoglobin 11.8 g/dL 13.5-17.5 [facility] ([facility]) Red Cell Distribution Width 13.7 % 11.5-14.5 [facility] ([facility]) Mean Corpuscular Hemoglobin 30.6 pg 27.0-33.0 [facility] ([facility]) Mean Corpuscular HGB Conc 31.6 g/dL 32.0-36.5 [facility] ([facility]) Nucleated Red Blood Cell % 0.0 % 0-0 [facility] ([facility]) Platelet Count, Automated 212 10 150-450 [facility] ([facility]) ID Date Data Source [id number] 01/21/2020 12:00:00 AM EDT [facility] Patricia CARLSON [facility] Date [facility] : 1930[place] [address]- Date of Exam: 01/21/2020#: Fax: [phone] EXAM: CT THORAX WITHOUT CONTRASTCLINICAL INFORMATION: Followup history of carcinoma of lung.All prior chest CT's were reviewed, the latest of which is dated 05/30/2019.64 slice low dose helical CT scanning was obtained throughout the thoraxwithout intravenous contrast along with sagittal and coronalreconstructions.Left hilar adenopathy seems to have developed since the last exam butdifficult to evaluate without intravenous contrast. There is no frankright hilar adenopathy or gross mediastinal adenopathy. There is a leftpleural effusion which has developed since the last exam. There is nopericardial effusion. There is no significant change in the appearance ofthe imaged upper abdomen. There is cholelithiasis. There is nosignificant change in the appearance of the imaged osseous structures.Evaluation of the lung farias shows heavy areas of patchy consolidationwith air bronchograms in both left upper and lower lobes along with thelingula which has developed or markedly worsened compared to the priorexam. Chronic lung field changes are seen with hyperexpansion, parenchymalbulla, pleural blebs, and cylindrical, possibly early varicoidbronchiectasis.IMPRESSION:1. New markedly abnormal left lung field findings with both free andloculated left pleural fluid collections as described above.2. Other chronic lung field changes which appear stable as describedabove.3. Other findings as described above.Accredited by the [employer] in [place].MANAN Sparrow/Cesar you for referring ÁNGELA QUIROZ to our office. Electronically Signed - DIMITRIOS HART DO 01/22/20 13:57 Name Value Range Interpretation Code Description Data Loulou rce(s) Supporting Document(s) ID Date Data Source [id number] 12/14/2019 10:00:00 AM EDT [facility] Name Value Range Interpretation Code Description Data Loulou rce(s) Supporting Document(s) SARS coronavirus 2 RNA [facility] This lab was ordered by [facility] and reported by [facility]. Procedure Social History Code Duration Value Status Description Data Source(s ) Smoking 06/14/2020 12:00:00 AM EDT Patient is a former smoker completed Patient is a former smoker [facility] ([facility], [facility]) Tobacco use and exposure 04/06/2020 12:00:00 AM EST Never used co mpleted Never used [facility] Smoking 04/06/2020 12:00:00 AM EST Former smoker completed Former smoker [facility] Vital Signs ID Date Data Source UNK Name Value Range Interpretation Code Description Data Source(s) Body weight 75.298 kg 75.298 kg [facility], [facility] Body mass index (BMI) [Ratio] 24.5 kg/m2 24.5 k g/m2 [facility] ([facility], ) [place] body weight 160 [lb_av] 160 [lb_av] [facility] T ([facility], ) Systolic blood pressure 160 mm[Hg] 160 mm[Hg] M [facility] ([facility]) Diastolic blood pressure 80 mm[Hg] 80 [facility] Body height 69 [in_i] 69 [in_i] [facility] (Health system) 5'9" Body weight 166.00 [lb_av] 166.00 [lb_av] [facility] ([facility]) Body surface area Derived from formula 1.91 m2 1.91 m2 [facility] ([facility]) Body height 69 [in_i] 69 [in_i] [facility]9" Body weight 76.658 kg 76.658 kg [facility] (Health system) Body weight 169.00 [lb_av] 169.00 [lb_av] [facility] ([facility]) Body mass index (BMI) [Ratio] 25.0 kg/m2 25.0 k g/m2 [facility] ([facility]) [place] body weight 160 [lb_av] 160 [lb_av] [facility] ([facility]) Body surface area Derived from formula 1.92 m2 1.92 m2 [facility] ([facility]) Body weight 76.658 kg 76.658 kg [facility] (Health system) Systolic blood pressure 131 mm[Hg] 131 mm[Hg] [facility] Diastolic blood pressure 71 mm[Hg] 71 mm[Hg] [facility] ([facility]) Body weight 169.00 [lb_av] 169.00 [lb_av] [facility] ([facility]) Body mass index (BMI) [Ratio] 25.0 kg/m2 25.0 k g/m2 [facility] ([facility]) Body surface area Derived from formula 1.92 m2 1.92 m2 [facility] ([facility]) Body height 69 [in_i] 69 [in_i] [facility] (Health system) 5'9" [place] body weight 160 [lb_av] 160 [lb_av] [facility] ([facility], ) Body height 71 [in_i] 71 [in_i] [facility] ([facility], [facility]) 5'11" Systolic blood pressure 184 mm[Hg] 184 mm[Hg] [facility], [facility]) Diastolic blood pressure 99 mm[Hg] 99 mm[Hg] [facility] ([facility], [facility]) Heart rate 76 /min 76 /min [facility] ([facility], [facility]) Respiratory rate 16 /min 16 /min [facility] ( [facility], [facility]) Oxygen saturation in Arterial blood by Pulse oximetry 94 % 94 % [facility], [facility]) Body temperature 97.6 [degF] 97.6 [degF] [facility] ([facility], [facility]) Body weight 168.00 [lb_av] 168.00 [lb_av] [facility] ([facility], [facility]) Diastolic blood pressure 66 mm[Hg] 66 mm[Hg] [facility] ([facility], [facility]) Heart rate 78 /min 78 /min [facility]) Respiratory rate 22 /min 22 /min [facility] ( [facility], [facility]) Systolic blood pressure 112 mm[Hg] 112 mm[Hg] [facility], [facility]) Body temperature 98.2 [degF] 98.2 [degF] [facility] ([facility], [facility]) Oxygen saturation in Arterial blood by Pulse oximetry 97 % 97 % [facility], [facility]) [place] body weight 160 [lb_av] 160 [lb_av] [facility] T ([facility], ) Diastolic blood pressure 78 mm[Hg] 78 mm[Hg] [facility] ([facility], ) Body height 69 [in_i] 69 [in_i] [facility] ([facility], ) 5'9" Body weight 163.00 [lb_av] 163.00 [lb_av] [facility] T ([facility], ) Systolic blood pressure 128 mm[Hg] 128 mm[Hg] M [facility] ([facility]) Body mass index (BMI) [Ratio] 24.1 kg/m2 24.1 k g/m2 [facility] Body weight 73.937 kg 73.937 kg [facility] (Health system) Body surface area Derived from formula 1.89 m2 1.89 m2 [facility] ([facility]) ID Date Data Source [id number] 11/04/2020 08:17:16 AM [facility] Name Value Range Interpretation Code Description Data Source(s) WEIGHT RECORDED 168 lb 168 lb [facility] ID Date Data Source [id number] 07/02/2020 08:11:48 AM [facility] Name Value Range Interpretation Code Description Data Source(s) WEIGHT RECORDED 165 lb 165 lb [facility] Body height Measured 68 in 68 in [facility] ID Date Data Source [id number] 03/23/2020 02:45:59 PM [facility] Name Value Range Interpretation Code Description Data Source(s) WEIGHT RECORDED 167 lb 167 lb [facility] ID Date Data Source [id number] 01/28/2020 09:18:54 AM [facility] Name Value Range Interpretation Code Description Data Source(s) WEIGHT RECORDED 156 lb 156 lb [facility] Body height Measured 68 in 68 in [facility] Patient Treatment Plan of Care Planned Activity Planned Date Details Description Data Source (s) Cephalexin 500 MG Oral Capsule 01/23/2020 12:00:00 AM [facility] Tamsulosin hydrochloride 0.4 MG Oral Capsule 08/24/2019 12:00:00 AM [facility] Simvastatin 20 MG Oral Tablet 07/27/2019 12:00:00 AM [facility] Allopurinol 100 MG Oral Tablet 05/19/2019 12:00:00 AM [facility] docosahexaenoic acid 120 MG / Eicosapentaenoic Acid 18 0 MG Oral Capsule 09/11/2012 12:00:00 AM [facility] Ipratropium-Albuterol (COMBIVENT IN) 02/19/2012 12:00:00 AM [facility] Finasteride 5 MG Oral Tablet [facility] Probiotic Product (PROBIOTIC DAILY PO) [facility] Aspirin 325 MG Oral Tablet [facility]
--- OUTSIDE RECORDS SUMMARY | 2021-01-27 13:59 | CCD | Continuity of Care Document ---
Author Author Noah BOWDEN MD Organization Unknown Address [address] [place] [address] Phone [phone] Care Team Providers Care Field Care Advocate Name Role Phone Yamileth Madrigal M.D. AUTM [phone] Eliz Zavala AUTM David Barboza D.O. AUTM [phone] Zohreh Nelson M.D. AUTM Problems Active Problems [...] lb BMI (Body Mass Index) 24.5 kg/m2 [place] Body Weight 160 lb Weight 75.298 kg BSA (Body Surface Area) 1.91 m2 08/04/2020 10:34am BP Systolic 131 mmHg BP Diastolic 71 mmHg Height 69 inches 5'9" Weight 169.00 lb BMI (Body Mass Index) 25.0 kg/m2 [place] Body Weight 160 lb Weight 76.658 kg BSA (Body Surface Area) 1.92 m2 Results Description No Information Available Procedures Date Code Description Status 12/08/2020 19753 Office/Outpatient Established Mo d MDM 30-39 Min Completed 08/04/2020 23128 Office/Outpatient Established Lo w MDM 20-29 Min Completed Medical Devices Description No Information Available Encounters Type Date Location Provider Dx Diagnosis Office Visit 12/08/2020 10:30a [facility] andreas Bowden MD D12.2 Benign neoplasm of ascending colon D12.3 Benign neoplasm of transvers e colon D12.4 Benign neoplasm of descendin g colon 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 has had EUS follow up at [facility].Pt with known colon poypoid masses up to [...]
--- OUTSIDE RECORDS SUMMARY | 2021-01-27 13:59 | CCD | Summary of Care ---
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 Oncology [address] [place] [address] Allergies Comments Active Allergy Reactions Severity Noted Date Tetanus Toxoids 08/12/2019 documented as of this encounter (statuses as of 11/09/2020) Medications End Date Status Medication Sig Dispensed Refills Start Date Active Calcitriol 0.25 MCG Oral 0 Capsule (ROCALTROL) 0 Active Carvedilol 3.125 MG Oral 0 Tablet (COREG) 0 Active Famotidine 20 MG Oral Twice daily 0 08/10/19 2 Tablet (PEPCID) 0 Active Furosemide 20 MG Oral 0 Tablet (LASIX) 0 Active Levothyroxine Sodium 125 0 MCG Oral Tablet 0 (SYNTHROID) Active Nitroglycerin 0.4 MG PRN 0 Sublingual Tablet 0 Sublingual (NITROSTAT) Active Acetaminophen ER 650 MG Take by mouth 0 Oral Tablet Extended Release (TYLENOL) Active PARoxetine HCl 10 MG Oral Take 10 mg by 0 Tablet (PAXIL) mouth every morning Active buPROPion HCl ER (XL) 150 Take 150 mg 0 MG Oral Tablet Extended by mouth Release 24 Hour every morning (WELLBUTRIN XL) Active Nutritional Supplements Take by mouth 0 (BOOST PO) 1-2 daily to aid in weight loss documented as of this encounter (statuses as of 11/09/2020) Active Problems Problem Noted Date 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 Cancer Staging: Clinical stage from 07/24: Stage IIIA (cT4, cN0, cM0) - Signed by Jesus Reynoso MD on 0 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 Cancer Staging: Pathologic stage from : Stage Unknown (pT1a, pNX, cM0, G2) - Signed by Jesus Reynoso MD on 08/12/2019 documented as of this encounter (statuses as of 11/09/2020) Immunizations Name Administration Dates Next Due documented as of this encounter Social History Date Tobacco Use Types Packs/Day Years Used Quit: 2007 Former Smoker Cigarettes Smokeless Tobacco: Never Used Comments: 62 pyHx Sex Assigned at Date Recorded Not on file Date Recorded COVID-19 Exposure Response 11/09/2020 2:11 PM EDT In the last month, have you been in contact with No / Unsure someone who was confirmed or suspected to have Coronavirus / COVID-19? documented as of this encounter Last Filed Vital Signs Not on filedocumented in this encounter Progress Notes * Jesus Reynoso MD - 11/09/2020 2:00 PM EDT Images from the original note were not included. This is a tele-medical visit. The patient was informed of the risks including se curity breach, technological failure, inability to perform a comprehensive physi brynn exam which could delay or prevent an accurate diagnosis, and potential compl ications from treatment decisions rendered over a telemedical platform. The maxi ent understands and consented to the use of tele-health services. The service was provided by means of an audio/video telecommunication. 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 Recommendation at [place] was for close survei llance as opposed to adjuvant therapy, or additional resection Lung Cancer Definitive hypofractionated radiation therapy, 6000 cGy in 20 fractions complete d 09/29/2019 Performance status: (2) Ambulatory and capable of self care, unable to carry ou t work activity, up and about > 50% or waking hours HPI: Mr. Quiroz is an 89-year-old male with a diagnosis of early stage esophage al cancer, status post EMR undergoing close surveillance, and lung cancer, 9 mon th status post definitive radiation therapy. Regarding his esophagus, he has pathak d surveillance endoscopy without evidence of residual disease, and continues to follow at [place]. Also still following with Dr. Mann from thoracic medical oncol ogy at [place]. Reportedly, next generation sequencing was done, with nothing a ctionable. And continues to see gastroenterology in [place], for concerning c olon lesion. Interim History Presents today for scheduled follow-up to review CT. Notes his breathing has be en more or less stable, subjectively, continues on supplemental oxygen as needed Denies chest pain. Good appetite, weight stable. Denies headache, nausea, vom iting. No dysphagia. No blood in the stool. Is doing light work around the ho use. Medications: Current Outpatient Medications Medication Sig Dispense Refill Acetaminophen ER 650 MG Oral Tablet Extended Release (TYLENOL) Take by mo [facility] buPROPion HCl ER (XL) 150 MG Oral Tablet Extended Release 24 Hour (WELLBU NORRIS XL) Take 150 mg by mouth every morning Calcitriol 0.25 MCG Oral Capsule (ROCALTROL) Carvedilol 3.125 MG Oral Tablet (COREG) Famotidine 20 MG Oral Tablet (PEPCID) Twice daily Furosemide 20 MG Oral Tablet (LASIX) Levothyroxine Sodium 125 MCG Oral Tablet (SYNTHROID) Nitroglycerin 0.4 MG Sublingual Tablet Sublingual (NITROSTAT) PRN Nutritional Supplements (BOOST PO) Take by mouth 1-2 daily to aid in weig ht loss PARoxetine HCl 10 MG Oral Tablet (PAXIL) Take 10 mg by mouth every mornin g No current facility-administered medications for this visit. Allergies: Tetanus toxoids Patient's medications, allergies, past medical, surgical, social and family hist ories were reviewed and updated as appropriate. Objective: Vitals - 1 value per visit 03/23/2020 04/06/2020 07/06/2020 SYSTOLIC - 116 152 DIASTOLIC - 63 74 PULSE - 67 64 TEMPERATURE - - - Weight (kg) 75.751 kg 74.844 kg 76.204 kg HEIGHT - 172.7 cm - SPO2 - 100 - BODY MASS INDEX 25.39 kg/m2 25.09 kg/m2 25.54 kg/m2 PAIN SCALE - SCORE 0 0 - Phone Exam - Limited No repiratory distress Speech fluent Psych: Mood, affect, train of thought unremarkable. Good insight. Diagnostic Test Results: Assessment & Plan: Mr. Quiroz is an 89-year-old male status post definitive hypofractionated radia tion therapy, 60 Gy in 20 fractions. Clinically patient is stable. CT shows stability from last scan, perhaps a bit improved. pleural effusion has decreased in size. I am recommending another CT chest with contrast to be done in 4 months, in [place]. I will see him for te lemedicine visit thereafter. He will continue to follow with his other doctors at [place], and in [place]. He knows he can call anytime with questions or concerns. Jesus Reynoso MD Fulling Machine Operator Radiation Oncology documented in this encounter Plan of Treatment Order Schedule Name Type Priority Associated Diag noses Expected: 11/09/2020, Expires: CT Thorax with Contrast Imaging Routine Adenoc arcinoma of left upper lobe of lung 1 Occurrences starting 11/09/2020 until 05/12/2021 Creatinine with GFR Lab Routine Adenocarci noma of left upper lobe of lung Ordered: 11/09/2020 POCT i-STAT Creatinine Point of Care Routine Adenoca rcinoma of left Testing-Docked upper lobe of lung Device Health Maintenance Due Date Last Done Comments MMR Vaccines (1 of 1 - 01/04/1931 Standard series) Varicella Vaccines (1 of 01/04/1931 2 - 2-dose childhood series) Pneumococcal Vaccine: 65+ 01/04/1936 Years (1 of 4 - PCV13) Pneumococcal Vaccine: 01/04/1936 Pediatrics (0 to 5 Years) and At-Risk Patients (6 to 64 Years) (1 of 4 - PCV13) DTaP,Tdap,and Td Vaccines 01/04/1937 (1 - Tdap) Zoster Vaccines (1 of 2) 01/04/1982 Influenza Vaccine 12/24/2020 COVID-19 Vaccine Completed 06/25/2020, 05/28/2020 HIB Vaccines Aged Out No longer eligible based on patient's age to complete this topic Hepatitis A Vaccines Aged Out No longer eligibl e based on patient's age to complete this topic Hepatitis B Vaccines Aged Out No longer eligibl e based on patient's age to complete this topic IPV Vaccines Aged Out No longer eligible based on patient's age to complete this topic documented as of this encounter Results Not on filedocumented in this encounter Visit Diagnoses Diagnosis Adenocarcinoma of left upper lobe of kamini ng - Primary documented in this encounter
[2021-01-27 14:00] LABS: BASO % 0.1 % (0.0-1.0); HEMATOCRIT 35.8 % (42.0-52.0); HEMOGLOBIN 11.2 g/dl (13.5-17.5); LYMPH # 0.5 10^3/uL (1.5-5.0); LYMPH % 6.2 % (24.0-44.0); MEAN CORPUSCULAR HEMOGLOBIN 30.5 pg (27.0-33.0); MEAN CORPUSCULAR HGB CONC 31.3 g/dl (32.0-36.5); MEAN CORPUSCULAR VOLUME 97.5 fl (80.0-96.0); MONO # 1.6 10^3/uL (0.0-0.8); MONO % 19.4 % (2.0-8.0); NEUTROPHILS % 71.6 % (36.0-66.0); PLATELET COUNT, AUTOMATED 161 10^3/uL (150-450); RED BLOOD COUNT 3.67 10^6/uL (4.30-6.10); WHITE BLOOD COUNT 8.4 10^3/uL (4.0-10.0)
--- NOTE | 2021-01-27 14:00 | REP ---
INDICATION: DYSPNEA/COUGH. COMPARISON: Multiple the latest 01/23/2021 TECHNIQUE: Portable FINDINGS: The technique utilized in obtaining the radiograph has magnified the cardiac silhouette and accentuated the interstitial markings. The cardiomediastinal silhouette lung farias are unchanged. Left upper lobe opacities unchanged. There are bibasilar opacities which are unchanged. The left CP angle is chronically blunted. There is no change in the osseous structures. IMPRESSION: Chronic lung field changes as described above. Acute disease superimposed upon chronic change cannot be ruled out. <Electronically signed by Stephon Ross > 01/27/21 [id number]
[2021-01-27 14:36] LABS: ALBUMIN 2.2 GM/DL (3.2-5.2); BILIRUBIN,DIRECT 0.5 MG/DL (0.0-0.2); CALCIUM LEVEL 8.9 MG/DL (8.8-10.2); CK-MB VALUE MASS 2.7 NG/ML (<3.6); CREATININE FOR GFR 2.59 MG/DL (0.70-1.30); MB/CK RELATIVE INDEX 3.7 (< OR =4); POTASSIUM SERUM 5.7 MEQ/L (3.5-5.1); THYROID STIMULATING HORMONE 7.63 uIU/ML (0.358-3.740); THYROXINE (T4) 7.1 UG/DL (4.5-12.0); TOTAL PROTEIN 5.9 GM/DL (6.4-8.2); TROPONIN I 0.04 NG/ML (< 0.10)
[2021-01-27 14:55] LABS: RSV AMPLIFICATION NEGATIVE (NEGATIVE)
--- NOTE | 2021-01-27 15:01 | REP ---
INDICATION: pleyral effusion/pericardial COMPARISON: Multiple the latest 2 days ago TECHNIQUE: Standard helical technique without intravenous contrast FINDINGS: There is no significant change in appearance of the pleural effusion. There is a small right pleural effusion which may have increased minimally from the prior exam. The mediastinum and pulmonary tessie are unchanged. There is adenopathy status quo. There is no change in the imaged upper abdomen or imaged osseous structures. Evaluation of the lung farias again shows advanced emphysematous changes and scattered interstitial and airspace opacities particularly in the left lung upper lobe, lingula, and superior segment of the lower lobe all of which appears unchanged there is significant respiratory motion artifact obscuring the detail. There is bronchiectasis status quo. There is peribronchial wall thickening status quo. IMPRESSION: No significant change as described above. <Electronically signed by Stephon Ross > 01/27/21 [id number]
--- NOTE | 2021-01-27 15:06 | REP ---
INDICATION: pleyral effusion/pericardial. COMPARISON: 12/15/2019 the latest prior TECHNIQUE: Standard helical technique without intravenous or oral bowel preparatory contrast administration FINDINGS: There is cholelithiasis status quo. The liver, spleen, pancreas, adrenal glands, and kidneys are unchanged. The abdominal aorta and para-aortic regions are unchanged. Bowel loops and the mesenteries are obscured by artifact. There is no gross abnormality. There might be a tiny amount of fatty infiltration in the right lower quadrant mesentery. This is extremely subtle and difficult to evaluate due to motion artifact and without contrast. There is no gross free air. There is a tiny amount of nonspecific fluid in Oconnor's pouch. Small amount of free air could be obscured due to the artifact. There is a moderate amount of content in the rectosigmoid vault. This is unchanged. Bone window technique throughout the examination shows no significant change in appearance of the osseous structures. IMPRESSION: No gross change compared to the prior exam. Subtle findings right lower quadrant as described above. Etiology uncertain. Other findings and limitations as described above. <Electronically signed by Stephon Ross > 01/27/21 [id number]
[2021-01-27] MEDS ORDERED: DIGOXIN INJ 0.5 MG/2 ML AMP (J1160) IV STA (15:45)
[2021-01-27] MEDS ORDERED: BUPR150T12 PO (16:32)
[2021-01-27] MEDS ORDERED: LEVO137T2 PO (16:32)
[2021-01-27] MEDS ORDERED: PAXI20TA29 PO (16:32)
[2021-01-27] MEDS ORDERED: PROBCAP14 PO (16:32)
[2021-01-27] MEDS ORDERED: HOME MED LIST COMPLETE! XX SCH (16:35)
[2021-01-27] MEDS: METOPROLOL 5 MG/5 ML VIAL IV SCH ×3 (17:00→17:10)
[2021-01-27] MEDS ORDERED: ACETAMINOPHEN 650MG ER TAB (TYLENOL ARTHRITIS) PO PRN (17:00)
--- NOTE | 2021-01-27 17:38 | HPEPDOC ---
General Date of Admission Jan 27, 2021 at 17:00 Date of Service: Jan 27, 2021 Chief Complaint The patient is a 89-year-old male admitted with a reason for visit of Atrial Fibrillation W/Rvr. Source: Patient History of Present Illness Patient is 89 years old male with past medical history of coronary artery diseases, hyperlipidemia, hypertension, COPD, [place], 2 stents placement, diastolic CHF, atrial fibrillation not on the anticoagulation, esophageal cancer, metastatic lung cancer treated with chemotherapy and radiation presented to hospital with increased shortness of breath. Patient is very poor historian, most of his history I obtained from previous records. In ER patient was found to have heart rate of 125 with atrial fibrillation, no leukocytosis, lactic acid 2.9, potassium 5.7, creatinine 2.5, AST 1491, ALT 1054, [place] [address] chest showed There is no significant change in appearance of the pleural effusion, There is bronchiectasis status quo. There is peribronchial wall thickening status quo. CT abdomen/pelvis showed No gross change compared to the prior exam. Subtle findings right lower quadrant. Home Medications Scheduled Bupropion Hcl (Bupropion Xl) 150 Mg Tab.er.24h, 150 MG PO QHS, (Reported) Calcitriol (Rocaltrol) 0.25 Mcg Cap, 0.25 MCG PO 3XW, (Reported) -- Carvedilol (Carvedilol) 3.125 Mg Tablet, 3.125 MG PO DAILY, (Reported) Famotidine (Pepcid AC) 20 Mg Tablet, 20 MG PO BID, (Reported) Furosemide (Furosemide) 20 Mg Tab, 40 MG PO DAILY, (Reported) Lactobacillus Acidophilus (Probiotic) 1 Each Capsule, 1 CAP PO DAILY, (Reported) Levothyroxine Sodium (Levothyroxine Sodium) 137 Mcg Tablet, 137 MCG PO QAM, (Reported) Paroxetine HCl (Paxil) 20 Mg Tablet, 20 MG PO DAILY, (Reported) Scheduled PRN Acetaminophen (Tylenol Arthritis) 650 Mg Tablet.er, 650 MG PO Q8H PRN for PAIN, (Reported) Allergies Coded Allergies: Tetanus Vaccines and Toxoid (Verified Allergy, Severe, rigidity, 12/12/19) Past Medical History Medical History coronary artery diseases, hyperlipidemia, hypertension, COPD, [place], 2 stents placement, diastolic CHF, atrial fibrillation not on the anticoagulation, esophageal cancer, metastatic lung cancer, chronic kidney disease, gout, hypothyroidism Surgical History Cardiac stent placement in 2008 Family History I personally reviewed family history and found not pertinent Social History * Smoker: former Smoker Alcohol: Denies Drugs: denies A-FIB/CHADSVASC A-FIB History Current/History of A-Fib/PAF?: Yes Review of Systems Constitutional: Denies: Chills, Fever Eyes: Denies: Pain ENT: Denies: Head Aches Skin: Denies: Rash Pulmonary: Reports: Dyspnea Cardiovascular: Reports: Palpitations; Denies: Chest Pain Gastrointestinal: Denies: Nausea Genitourinary: Denies: Dysuria Hematologic: Denies: Bruising Endocrine: Denies: Polydipsia Musculoskeletal: Denies: Neck Pain Neurological: Denies: Weakness Psych: Reports: Mood Normal Physical Examination General Exam: Negative: Alert, Cooperative Eye Exam: Negative: PERRLA ENT Exam: Negative: Atraumatic Neck Exam: Positive: Supple, JVD Chest Exam: Positive: Diminished Heart Exam: Positive: Irregular Rhythm Telemetry: Positive: Atrial fibrillation Abdomen Exam: Positive: Normal bowel sounds Extremity Exam: Positive: Clubbing; Negative: Cyanosis Skin Exam: Positive: Nl turgor and temperature Neuro Exam: Positive: Cranial Nerves 3-12 NL Psych Exam: Positive: Mental status NL Vital Signs Vital Signs Date Time Temp Pulse Resp B/P (MAP) Pulse Ox O2 Delivery O2 Flow Rate FiO2 01/27/21 17:01 115 157/95 (115) Nasal Cannula 4.0 01/27/21 16:01 83 01/27/21 13:22 98.0 20 Laboratory Data Labs 24H Laboratory Tests 2 01/27/21 13:40: Immature Granulocyte % (Auto) 2.7, Neutrophils (%) (Auto) 71.6H, Lymphocytes (%) (Auto) 6.2L, Monocytes (%) (Auto) 19.4H, Eosinophils (%) (Auto) 0.0, Basophils (%) (Auto) 0.1, Neutrophils # (Auto) 6.0, Lymphocytes # (Auto) 0.5L, Monocytes # (Auto) 1.6H, Eosinophils # (Auto) 0.0, Basophils # (Auto) 0.0, Nucleated Red Blood Cells % (auto) 0.2H, Anion Gap 8, Glomerular Filtration Rate 25.0L, Lactic Acid Level 2.9*H, Calcium Level 8.9, Total Bilirubin 1.0, Direct Bilirubin 0.5H, Aspartate Amino Transf (AST/SGOT) 1491H, Alanine Aminotransferase (ALT/SGPT) 1 054H, Alkaline Phosphatase 454H, Total Creatine Kinase 73, Creatine Kinase MB 2.7, Creatine Kinase MB Relative Index 3.70, Troponin I 0.04, DA-Koj-V-Type Natriuretic Peptide 02236V, Total Protein 5.9L, Albumin 2.2L, Albumin/Globulin Ratio 0.6, Thyroid Stimulating Hormone (TSH) 7.630H, Thyroxine (T4) 7.1, Coronavirus (COVID-19)(PCR) NEGATIVE, Influenza Type A (RT-PCR) NEGATIVE, Influenza Type B (RT-PCR) NEGATIVE, Respiratory Syncytial Virus (PCR) NEGATIVE CBC/BMP Laboratory Tests 01/27/21 13:40 Microbiology Microbiology 01/27/21 Blood Culture, Received Pending 01/27/21 Blood Culture, Received Pending Assessment/Plan Patient is 89 years old male with past medical history of coronary artery diseases, hyperlipidemia, hypertension, COPD, [place], 2 stents placement, diastolic CHF, atrial fibrillation not on the anticoagulation, esophageal cancer, metastatic lung cancer treated with chemotherapy and radiation presented to hospital with increased shortness of breath. Patient is very poor historian, most of his history I obtained from previous records. In ER patient was found to have heart rate of 125 with atrial fibrillation, no leukocytosis, lactic acid 2.9, potassium 5.7, creatinine 2.5, AST 1491, ALT 1054, [place] [address] chest showed There is no significant change in appearance of the pleural effusion, There is bronchiectasis status quo. There is peribronchial wall thickening status quo. CT abdomen/pelvis showed No gross change compared to the prior exam. Subtle findings right lower quadrant. Problems (1) Atrial fibrillation with RVR Status: Acute Problem Text: I talked to Dr. Jameson he recommended to continue load with digoxin 0.25 IV x2 and start metoprolol 25 mg 3 times daily and start Eliquis 2.5 mg twice daily Lopressor IV as needed with parameters Echo Telemetry (2) Acute diastolic CHF (congestive heart failure) Status: Acute Problem Text: BNP significantly elevated, plus JVD However BNP can be elevated due to atrial fibrillation with rapid ventricular rate and CKD Echo ordered IV Lasix (3) Hypertension Status: Chronic Problem Text: Blood pressure under control Continue to monitor (4) Lung cancer Status: Chronic Problem Text: Patient is a poor historian I will try to obtain medical history from PCP (5) Esophageal cancer Status: Chronic Problem Text: Patient is a poor historian I will try to obtain medical history from PCP (6) Transaminitis Status: Acute Problem Text: We will check hepatitis panel (7) Acute kidney injury superimposed on chronic kidney disease Status: Acute Problem Text: Most likely secondary to kidney hypoperfusion due to hypotension secondary to rapid ventricular rate and atrial fibrillation Patient elevated to 2.5 Baseline creatinine 1.7 Continue to monitor (8) Hyperkalemia Status: Chronic Problem Text: Patient will receive Lasix IV Continue monitor BMP Plan / VTE VTE Prophylaxis Ordered?: Yes SIM RODRIGUEZ DO Jan 27, 2021 17:38
[2021-01-27 18:29] LABS: INR 1.55
[2021-01-27 18:45] LABS: CALCIUM LEVEL 8.9 MG/DL (8.8-10.2); CREATININE FOR GFR 2.63 MG/DL (0.70-1.30); GLOMERULAR FILTRATION RATE 24.5 (>35); POTASSIUM SERUM 5.6 MEQ/L (3.5-5.1)
[2021-01-27 18:54] LABS: MAGNESIUM LEVEL 2.5 MG/DL (1.8-2.4)
[2021-01-27 19:09] LABS: HEPATITIS B SURFACE ANTIGEN NEGATIVE (NEGATIVE)
[2021-01-27 19:35] LABS: HEPATITIS C VIRUS ABY INDEX < 0.0 INDEX (<0.8)
[2021-01-27 19:36] LABS: HEPATITIS B CORE ANTIBODY IGM NEGATIVE (NEGATIVE)
[2021-01-27] MEDS: APIXABAN 2.5 MG TAB (ELIQUIS) PO SCH (20:23)
[2021-01-27] MEDS: FAMOTIDINE 20 MG TAB PO SCH (20:23)
[2021-01-27] MEDS: METOPROLOL TART 25 MG TABLET PO SCH ×3 (20:23→20:26)
[2021-01-27] MEDS: DIGOXIN INJ 0.5 MG/2 ML AMP (J1160) IV SCH ×3 (20:24→22:21)
[2021-01-27] MEDS: FUROSEMIDE 40MG/4ML VIAL (J1940) IV SCH (20:24)
[2021-01-27] MEDS: buPROPion **XL** TABLET 150MG (WELLBUTRIN XL) PO SCH (20:30)
[2021-01-27] MEDS ORDERED: METOPROLOL TART 25 MG TABLET PO SCH (21:00)
[2021-01-28] MEDS ORDERED: LORazepam 2 MG/ML VIAL IV STA (01:27)
[2021-01-28 02:45] LABS: CALCIUM LEVEL 8.3 MG/DL (8.8-10.2); CREATININE FOR GFR 2.89 MG/DL (0.70-1.30); POTASSIUM SERUM 5.4 MEQ/L (3.5-5.1)
[2021-01-28] MEDS: LEVOTHYROXINE 137MCG TABLET (0.137MG) PO SCH (06:00)
[2021-01-28] MEDS ORDERED: SOD POLYSTYRENE SULFONATE SUSP 15 GM/60 ML UD PO ONE (08:00)
[2021-01-28 08:12] LABS: HEMATOCRIT 34.6 % (42.0-52.0); HEMOGLOBIN 11.1 g/dl (13.5-17.5); MEAN CORPUSCULAR HEMOGLOBIN 30.4 pg (27.0-33.0); MEAN CORPUSCULAR HGB CONC 32.1 g/dl (32.0-36.5); MEAN CORPUSCULAR VOLUME 94.8 fl (80.0-96.0); PLATELET COUNT, AUTOMATED 127 10^3/uL (150-450); RED BLOOD COUNT 3.65 10^6/uL (4.30-6.10); WHITE BLOOD COUNT 4.4 10^3/uL (4.0-10.0)
[2021-01-28 08:31] LABS: BILIRUBIN,DIRECT 0.3 MG/DL (0.0-0.2); BILIRUBIN,TOTAL 0.6 MG/DL (0.2-1.0); TOTAL PROTEIN 5.9 GM/DL (6.4-8.2)
[2021-01-28 08:44] LABS: BILIRUBIN,TOTAL 0.6 MG/DL (0.2-1.0); CALCIUM LEVEL 8.3 MG/DL (8.8-10.2); CREATININE FOR GFR 2.7 MG/DL (0.70-1.30); GLOMERULAR FILTRATION RATE 23.8 (>35); MAGNESIUM LEVEL 2.4 MG/DL (1.8-2.4); POTASSIUM SERUM 5.2 MEQ/L (3.5-5.1); TOTAL PROTEIN 5.4 GM/DL (6.4-8.2)
[2021-01-28] MEDS: FAMOTIDINE 20 MG TAB PO SCH ×2 (09:00→23:05)
[2021-01-28] MEDS: CALCITRIOL 0.25 MCG CAP (S0169) PO SCH (09:00)
[2021-01-28] MEDS: FUROSEMIDE 40MG/4ML VIAL (J1940) IV SCH ×2 (09:00→23:05)
[2021-01-28] MEDS: METOPROLOL TART 25 MG TABLET PO SCH ×3 (09:00→23:04)
[2021-01-28] MEDS: APIXABAN 2.5 MG TAB (ELIQUIS) PO SCH ×2 (09:00→23:07)
[2021-01-28] MEDS: PARoxetine 20MG TABLET PO SCH (09:00)
--- NOTE | 2021-01-28 13:16 | IPNPDOC ---
Text Note Date of Service The patient was seen on 01/28/21. NOTE Subjective: Patient was agitated overnight, aggressive he received sedation with lorazepam 1 mg. When I saw him in the morning he is somnolent, barely responsive. Objective: GENERAL APPEARANCE: Somnolent male HEENT: no scleral icterus, plus JVD, EOMI CARDIOVASCULAR: Irregularly irregular LUNGS: Diminished lung sounds bilaterally ABDOMEN: soft & not tender w palpation MUSCULOSKELETAL: no cyanosis, +1 swelling of both legs INTEGUMENT: no generalized pallor NEUROLOGICAL: cranial nerve function from 2-12 intact, follows commands, speech not dysarthric Assessment/Plan Patient is 89 years old male with past medical history of coronary artery diseases, hyperlipidemia, hypertension, COPD, [place], 2 stents placement, diastolic CHF, atrial fibrillation not on the anticoagulation, esophageal cancer, metastatic lung cancer treated with chemotherapy and radiation presented to hospital with increased shortness of breath. Patient is very poor historian, most of his history I obtained from previous records. In ER patient was found to have heart rate of 125 with atrial fibrillation, no leukocytosis, lactic acid 2.9, potassium 5.7, creatinine 2.5, AST 1491, ALT 1054, [place] [address] chest showed There is no significant change in appearance of the pleural effusion, There is bronchiectasis status quo. There is peribronchial wall thickening status quo. CT abdomen/pelvis showed No gross change compared to the prior exam. Subtle findings right lower quadrant. Problems (1) Atrial fibrillation with RVR Heart rate under control Eliquis 2.5 twice daily Lopressor IV as needed with parameters Echo pending Telemetry (2) Acute diastolic CHF (congestive heart failure) BNP significantly elevated, plus JVD However BNP can be elevated due to atrial fibrillation with rapid ventricular rate and CKD Echo pending Continue IV Lasix (3) Hypertension Blood pressure under control Continue to monitor (4) Lung cancer Patient is a poor historian I will try to obtain medical history from PCP (5) Esophageal cancer Patient is a poor historian I will try to obtain medical history from PCP (6) Transaminitis Improved Hepatitis panel negative (7) Acute kidney injury superimposed on chronic kidney disease Most likely secondary to kidney hypoperfusion due to hypotension secondary to rapid ventricular rate and atrial fibrillation Baseline creatinine 1.7 Continue to monitor (8) Hyperkalemia Kayexalate Continue to monitor Plan / VTE VTE Prophylaxis Ordered?: Yes VS,Alecia, I+O VS, Alecia, I+O Laboratory Tests 01/27/21 13:40 01/27/21 18:03 01/28/21 02:15 01/28/21 07:55 Vital Signs Date Time Temp Pulse Resp B/P (MAP) Pulse Ox O2 Delivery O2 Flow Rate FiO2 01/28/21 12:38 77 100 01/28/21 12:00 20 157/85 (109) 01/28/21 11:01 97.6 01/28/21 10:01 Nasal Cannula 2.0 SIM RODRIGUEZ DO Jan 28, 2021 13:16
[2021-01-28 16:10] LABS: CALCIUM LEVEL 8.3 MG/DL (8.8-10.2); CREATININE FOR GFR 2.68 MG/DL (0.70-1.30); POTASSIUM SERUM 4.9 MEQ/L (3.5-5.1)
--- NOTE | 2021-01-28 20:40 | ECGEPIP ---
[facility] - ED Test Date: 2021-01-27 Pat Name: ÁNGELA GOLDSTEIN Department: Room: - Gender: Male [place] Monitor: CESILIA : 1930 Requested By: Sara Baker Order Number: [id number] Reading MD: Sara Baker Measurements Intervals [place] Rate: 119 P: SD: QRS: 32 QRSD: 76 T: -71 QT: 318 QTc: 447 Interpretive Statements Atrial fibrillation with rapid ventricular response Septal infarct , age undetermined ST & T wave abnormality, consider ischemia No prior Electronically Signed on 01-28-2021 20:39:58 EDT by Sara Baker
[2021-01-28] MEDS ORDERED: OLANZapine INTRAMUSCULAR 10MG VIAL IM PRN (22:45)
[2021-01-28] MEDS: buPROPion **XL** TABLET 150MG (WELLBUTRIN XL) PO SCH (23:05)
[2021-01-29 00:10] VITALS: BP 160/73
[2021-01-29] MEDS ORDERED: FUROSEMIDE 40MG/4ML VIAL (J1940) IV ONE (01:10)
[2021-01-29] MEDS: IPRATROPIUM 0.02% SOLN 0.5MG 2.5ML NEB INH SCH ×2 (01:59→09:06)
[2021-01-29] MEDS ORDERED: LEVALBUTEROL 1.25 MG/0.5 ML CONCENTRATE NEB INH SCH (02:00)
[2021-01-29 02:01] LABS: ABG HCO3 19.9 MEQ/L (22.0-26.0); ABG O2 SATURATION 99.6 % (95.0-99.0); ABG PARTIAL PRESSURE CO2 32.8 mmHg (35.0-45.0); ABG PARTIAL PRESSURE O2 221.1 mmHg (75.0-100.0); ABG STANDARD HCO3 21.2 MEQ/L (22.0-26.0); ABG TOTAL CO2 20.9 MEQ/L (23.0-31.0)
[2021-01-29 04:00] VITALS: BP 112/70
[2021-01-29] MEDS: LEVOTHYROXINE 137MCG TABLET (0.137MG) PO SCH (05:05)
[2021-01-29 05:29] LABS: BASO % 0.1 % (0.0-1.0); HEMATOCRIT 35.6 % (42.0-52.0); HEMOGLOBIN 11.4 g/dl (13.5-17.5); LYMPH # 0.1 10^3/uL (1.5-5.0); LYMPH % 0.7 % (24.0-44.0); MEAN CORPUSCULAR HEMOGLOBIN 30.6 pg (27.0-33.0); MEAN CORPUSCULAR VOLUME 95.4 fl (80.0-96.0); MONO # 2.3 10^3/uL (0.0-0.8); NEUTROPHILS # 14.9 10^3/uL (1.5-8.5); NEUTROPHILS % 83.6 % (36.0-66.0); PLATELET COUNT, AUTOMATED 155 10^3/uL (150-450); RED BLOOD COUNT 3.73 10^6/uL (4.30-6.10); WHITE BLOOD COUNT 17.8 10^3/uL (4.0-10.0)
[2021-01-29 05:53] LABS: BILIRUBIN,TOTAL 0.7 MG/DL (0.2-1.0); CALCIUM LEVEL 8.2 MG/DL (8.8-10.2); CREATININE FOR GFR 2.71 MG/DL (0.70-1.30); GLOMERULAR FILTRATION RATE 23.7 (>35); MAGNESIUM LEVEL 2.2 MG/DL (1.8-2.4); POTASSIUM SERUM 4.5 MEQ/L (3.5-5.1); TOTAL PROTEIN 5.4 GM/DL (6.4-8.2)
[2021-01-29] MEDS ORDERED: ALBUTEROL 90 MCG/ACT 8GM HFA INHALER INH PRN (07:35)
[2021-01-29 08:00] VITALS: BP 117/83
[2021-01-29] MEDS: cefTRIAXone SOD 2 GM in D5W MINI-BAG PLUS 50 ML IV SCH (08:34)
[2021-01-29] MEDS: IPRATROPIUM 0.5MG/ALBUTEROL 2.5MG INH SOL UD 3ML (DUONEB) INH SCH ×5 (09:06→23:52)
[2021-01-29] MEDS: METOPROLOL TART 25 MG TABLET PO SCH ×3 (09:55→20:18)
[2021-01-29] MEDS: DOXYCYCLINE HYCLATE 100 MG in D5W MINI-BAG PLUS 100 ML IV SCH ×2 (09:55→20:16)
[2021-01-29] MEDS: PARoxetine 20MG TABLET PO SCH (09:55)
[2021-01-29] MEDS: FAMOTIDINE 20 MG TAB PO SCH ×2 (09:55→20:21)
[2021-01-29] MEDS: FUROSEMIDE 40MG/4ML VIAL (J1940) IV SCH (09:56)
[2021-01-29] MEDS: APIXABAN 2.5 MG TAB (ELIQUIS) PO SCH ×2 (09:57→20:21)
[2021-01-29] MEDS ORDERED: OLANZapine INTRAMUSCULAR 10MG VIAL IM PRN (11:30)
--- NOTE | 2021-01-29 11:37 | IPNPDOC ---
Text Note Date of Service The patient was seen on 01/29/21. NOTE Subjective: Patient was agitated overnight, he received the dose of olanzapine intramuscular. Overnight his oxygen requirements increased to 15 L of oxygen. Objective: GENERAL APPEARANCE: Somnolent male HEENT: no scleral icterus, plus JVD, EOMI CARDIOVASCULAR: Irregularly irregular LUNGS: Diminished lung sounds bilaterally ABDOMEN: soft & not tender w palpation MUSCULOSKELETAL: no cyanosis, +1 swelling of both legs INTEGUMENT: no generalized pallor NEUROLOGICAL: cranial nerve function from 2-12 intact, follows commands, speech not dysarthric Assessment/Plan Patient is 89 years old male with past medical history of coronary artery diseases, hyperlipidemia, hypertension, COPD, [place], 2 stents placement, diastolic CHF, atrial fibrillation not on the anticoagulation, esophageal cancer, metastatic lung cancer treated with chemotherapy and radiation presented to hospital with increased shortness of breath. Patient is very poor historian, most of his history I obtained from previous records. In ER patient was found to have heart rate of 125 with atrial fibrillation, no leukocytosis, lactic acid 2.9, potassium 5.7, creatinine 2.5, AST 1491, [place] 1054[place] [address] chest showed There is no significant change in appearance of the pleural effusion, There is bronchiectasis status quo. There is peribronchial wall thickening status quo. CT abdomen/pelvis showed No gross change compared to the prior exam. Subtle findings right lower quadrant. Problems (1) Atrial fibrillation with RVR Heart rate improved Eliquis 2.5 twice daily Lopressor IV as needed with parameters We will continue digoxin 0.125 daily Echo pending Telemetry (2) Acute diastolic CHF (congestive heart [place]) [place] [address], plus JVD However BNP can be elevated due to atrial fibrillation with rapid ventricular rate and CKD Echo pending Continue IV Lasix (3) Hypertension Blood pressure under control Continue to monitor (4) Lung cancer Patient is a poor historian I will try to obtain medical history from PCP. According to his patient now in remission (5) Esophageal cancer Patient is a poor historian I will try to obtain medical history from PCP. According to his patient was cured after removal esophageal mass (6) Transaminitis Improved Hepatitis panel negative (7) Acute kidney injury superimposed on chronic kidney disease Most likely secondary to kidney hypoperfusion due to hypotension secondary to rapid ventricular rate and atrial fibrillation Baseline creatinine 1.7 Continue to monitor (8) Hyperkalemia Resolved Dyspnea Most likely due to sedation overnight patient developed aspiration with increased oxygen requirements up to 15 L via nasal cannula. Patient has good ox ygen saturation in the morning on the room air White blood count increased to 17, procalcitonin 0.48 I will start ceftriaxone IV and doxycycline IV Chest x-ray ordered Plan / VTE VTE Prophylaxis Ordered?: Yes VS,Fishbone, I+O VS, Fishbone, I+O Laboratory Tests 01/28/21 15:14 01/29/21 04:33 Vital Signs Date Time Temp Pulse Resp B/P (MAP) Pulse Ox O2 Delivery O2 Flow Rate FiO2 01/29/21 09:55 100 117/83 01/29/21 08:00 98.4 20 92 Nasal Cannula 15.0 I&O- Last 24 Hours up to 6 AM 01/29/21 06:00 Intake Total 0 ml Balance 0 ml SIM RODRIGUEZ DO Jan 29, 2021 11:37
--- NOTE | 2021-01-29 11:41 | ECHO ---
ECHOCARDIOGRAM DATE OF PROCEDURE: 01/27/2021 Age: 89 Gender: Male Height: 175 cm Weight: 75 kg PATIENT LOCATION: Emergency department, Room Further evaluation of colorectal cancer found by. REFERRING PROVIDER: Sara Baker M.D. REASON FOR THE TESTING: Pericardial effusion. MEASUREMENTS: 2D Measurements: IVS 1.2 cm LV 5.3 cm LVPW 9.4 cm LA 5.3 cm Aorta 3.8 cm IVC 2.8 cm Doppler Measurements: Peak velocity across the aortic valve 0.8 m/sec Peak velocity across the LVOT 0.5 m/sec Mitral E 0.89 Maximum tricuspid valve velocity 2.5 m/sec 2D COMMENTS: 1. Normal left ventricular size and wall thickness, but with a severely depressed global left ventricular systolic function. The estimated left ventricular systolic ejection fraction is 20-25%. There was global hypokinesis. 2. Moderately enlarged left atrium. The right atrium appeared to be mildly enlarged. Normal right ventricle. 3. The atrial septum appeared to be normal without evidence of defect or shunt. 4. Mildly dilated aortic root at 3.8 cm 5. A small pericardial effusion was noted. No evidence of cardiac tamponade. A left pleural effusion was also noted. 6. Mildly calcified aortic valve with normal leaflet excursion. Mildly calcified mitral annulus with normal anterior mitral valve leaflet motion. Normal tricuspid valve and pulmonic valve. The proximal pulmonary artery branches were not well visualized. DOPPLER: It detects mild aortic regurgitation, moderate mitral regurgitation, moderate tricuspid regurgitation and mild pulmonic regurgitation. The calculated pulmonary artery systolic pressure varies between 30-40 mmHg. Assessment of the left ventricular diastolic function was inconclusive. IMPRESSION: 1. Severe global left ventricular systolic dysfunction with diffuse hypokinesis. Assessment of the left ventricular not conclusive. 2. Aortic valve sclerosis with mild aortic regurgitation, but no aortic stenosis. 3. Mitral annulus calcification with moderate mitral regurgitation and a moderately enlarged left atrium. 4. Moderate tricuspid regurgitation with mild pulmonary hypertension. The right atrium appeared to be mildly enlarged. 5. Mild pulmonic regurgitation. 6. A small pericardial effusion was noted. No evidence of cardiac tamponade. A left pleural effusion was also seen.
[2021-01-29 12:00] VITALS: BP 128/80
[2021-01-29] MEDS: DIGOXIN 0.125 MG TAB PO SCH (12:02)
--- NOTE | 2021-01-29 14:20 | CR ---
NEPHROLOGY CONSULTATION DATE: 01/29/2021 REQUESTED BY: Randal Garcia D.O. REASON FOR CONSULTATION: Acute kidney injury superimposed on chronic kidney disease and congestive heart failure with pleural effusions. HISTORY OF PRESENT ILLNESS: Mr. Quiroz is an 89-year-old male with multiple chronic medical problems. 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 He has been treated with chemotherapy and radiation. Patient was found to have atrial fibrillation with rapid ventricular rate in the office for which he was sent to the emergency room on January 27, 2021 and he got admitted. His brain natriuretic peptide (BNP) level was elevated at 10,354. He had a CT scan of chest done, which did show pleural effusion and small pericardial effusion. His echocardiogram was done, which showed severely reduced left ventricular systolic function with ejection fraction of about 20-25%. Patient had a CT scan of chest with intravenous (IV) contrast done on Sunday of last week. He has known history of metastatic lung cancer. In any event, nephrology consultation was requested and patient is seen this morning. PAST MEDICAL HISTORY: Significant for: 1. Longstanding hypertension. 2. Advanced emphysema. 3. Hyperlipidemia. 4. Coronary artery disease. 5. Systolic and diastolic congestive heart failure. 6. Atrial fibrillation. 7. Metastatic lung cancer with esophageal cancer. 8. History of stage IV chronic kidney disease. 9. Gout. 10. Hypothyroidism. PAST SURGICAL HISTORY: Significant for: 1. Esophageal cancer resection. 2. History of coronary angioplasty with stents. ALLERGIES: He has allergies to TETANUS TOXOID. MEDICATIONS: Home medications include: - bupropion 150 mg daily - calcitriol 0.25 mcg three times a week - carvedilol 3.125 mg daily - famotidine 20 mg twice a day - furosemide 40 mg daily - levothyroxine 137 mcg daily - Paxil 20 mg daily PERSONAL AND SOCIAL HISTORY: Patient is and lives with his . He has a long history of smoking, which he quit recently. FAMILY HISTORY: Noncontributory for this admission. REVIEW OF SYSTEMS: Patient is significantly hard of hearing and he is also somewhat confused and disoriented. He was not able to provide much useful information Most of the information was obtained from his primary care physician and the hospital chart. PHYSICAL EXAMINATION: GENERAL: Patient is laying in the bed without any acute distress. VITAL SIGNS: Temperature 98 degrees Fahrenheit, heart rate 100 per minute, respiratory rate 20 per minute, blood pressure 128/80 mmHg, oxygen saturation 93% on 15 liters of oxygen. HEAD: Atraumatic. Oral mucosa somewhat dry. NECK: Supple and jugular venous distention (JVD) not abnormally elevated. HEART SOUNDS: Tachycardic and irregular.. LUNGS: Diminished breath sounds on the left side. Right side sounds mostly clear. ABDOMEN: Soft and nontender. Bowel sounds are normal. EXTREMITIES: Without any cyanosis or clubbing. There is no peripheral edema. NEUROLOGIC: He is awake. He was able to tell me his name and his 's name. He was also able to tell me that he is in [place], [place]. He could not recognize me, though I have seen him for a number of years. He has a sitter in the room due to his altered mentation. LABORATORY DATA: Today's labs show WBC count 7.8, hemoglobin 11.4, hematocrit 35.6, platelets 155. Sodium 140, potassium 4.5, CO2 23, BUN 83, creatinine 2.7, glucose 97, calcium 8.2. AST is down to 269, ALT 602, alkaline phosphatase 335, total protein 5.4, albumin 2.0, It is important to note that his AST was 791, ALT 845 and alkaline phosphatase 396 on January 28, 2021. Total bilirubin 0. 6 yesterday.. PROBLEMS: 1. Acute kidney injury superimposed on chronic kidney disease. Patient has advanced chronic kidney disease, even at baseline. He did have intravenous (IV) contrast for CAT scan of chest done last week. Most likely, his acute kidney injury is a result of contrast nephropathy. At present, I will hold his diuretic and see how he does over the next 24 hours. 2. Congestive heart failure and pleural effusion. Patient has metastatic lung disease and pleural effusion is probably related to his metastatic. His right side looks much better. His brain natriuretic peptide (BNP) was quite elevated, which is probably chronic. He does have significant systolic dysfunction on his echocardiogram. His oral intake is poor and I am going to hold his diuretic to see how he does. 3. Leukocytosis. I am also concerned about the possibility of postobstructive pneumonia. I would recommend to continue with antibiotics. He is currently on ceftriaxone and doxycycline. 4. Atrial fibrillation. His ventricular rate has improved and he remains on digoxin and beta timmy. 5. Chronic obstructive pulmonary disease (COPD) and hypoxemia. Patient has advanced chronic lung disease. He also has metastatic cancer in his left lung. Hypoxemia is mostly chronic and I do not feel that he has any significant element of congestive heart failure at present. I will keep him off further diuretics for the rest of the day today and reevaluate him tomorrow. Thank you for involving me in the care of Mr. Quiroz. I will follow him along with you.
--- NOTE | 2021-01-29 15:35 | REP ---
INDICATION: Pneumonia. COMPARISON: CT and AP CXR 01/27/2021. TECHNIQUE: AP portable seated. FINDINGS: Patient is slightly rotated towards the left which renders comparisons difficult. Perihilar left upper lobe mass and peripheral opacity again seen. Allowing for rotation probably not much changed. There are some basilar patchy atelectasis or infiltrates seen in both lower lung zones also not much changed. No pneumothorax. Calcified tortuous aorta noted. Heart size difficult to container crane operator but it appears mildly enlarged. Degenerative changes in the spine and shoulders with demineralization again seen. IMPRESSION: 1. Large opacities at the perihilar region in the left mid and upper lung zone and peripheral opacities that may reflect the presence of postobstructive pneumonitis suggested by CT. There are patchy basilar infiltrates bilaterally. Allowing for differences in technique and rotation, I do not see significant interval change. <Electronically signed by Doyle Clinton > 01/29/21 [id number]
[2021-01-29 16:00] VITALS: BP 113/74
[2021-01-29 20:00] VITALS: BP 134/65
[2021-01-29] MEDS: buPROPion **XL** TABLET 150MG (WELLBUTRIN XL) PO SCH (20:21)
[2021-01-30] VITALS (7 sets, daily range): BP systolic 120–175; BP diastolic 60–111
[2021-01-30] MEDS: IPRATROPIUM 0.5MG/ALBUTEROL 2.5MG INH SOL UD 3ML (DUONEB) INH SCH ×5 (04:00→19:35)
[2021-01-30] MEDS: LEVOTHYROXINE 137MCG TABLET (0.137MG) PO SCH (04:02)
[2021-01-30 06:56] LABS: HEMATOCRIT 37.1 % (42.0-52.0); HEMOGLOBIN 11.5 g/dl (13.5-17.5); LYMPH # 0.4 10^3/uL (1.5-5.0); LYMPH % 6.6 % (24.0-44.0); MEAN CORPUSCULAR HEMOGLOBIN 30.1 pg (27.0-33.0); MEAN CORPUSCULAR VOLUME 97.1 fl (80.0-96.0); MONO # 1.1 10^3/uL (0.0-0.8); MONO % 17.4 % (2.0-8.0); NEUTROPHILS # 4.8 10^3/uL (1.5-8.5); NEUTROPHILS % 74.7 % (36.0-66.0); PLATELET COUNT, AUTOMATED 135 10^3/uL (150-450); RED BLOOD COUNT 3.82 10^6/uL (4.30-6.10); WHITE BLOOD COUNT 6.4 10^3/uL (4.0-10.0)
[2021-01-30 07:29] LABS: BILIRUBIN,TOTAL 0.5 MG/DL (0.2-1.0); CALCIUM LEVEL 8.2 MG/DL (8.8-10.2); CREATININE FOR GFR 2.53 MG/DL (0.70-1.30); GLOMERULAR FILTRATION RATE 25.7 (>35); MAGNESIUM LEVEL 2.3 MG/DL (1.8-2.4); POTASSIUM SERUM 3.7 MEQ/L (3.5-5.1); TOTAL PROTEIN 5.6 GM/DL (6.4-8.2)
[2021-01-30] MEDS: DIGOXIN 0.125 MG TAB PO SCH (07:59)
[2021-01-30] MEDS: cefTRIAXone SOD 2 GM in D5W MINI-BAG PLUS 50 ML IV SCH (07:59)
[2021-01-30] MEDS: FAMOTIDINE 20 MG TAB PO SCH ×2 (08:00→20:37)
[2021-01-30] MEDS: PARoxetine 20MG TABLET PO SCH (08:00)
[2021-01-30] MEDS: APIXABAN 2.5 MG TAB (ELIQUIS) PO SCH ×2 (08:00→20:36)
[2021-01-30] MEDS: METOPROLOL TART 25 MG TABLET PO SCH ×3 (08:18→20:37)
[2021-01-30] MEDS: DOXYCYCLINE HYCLATE 100 MG in D5W MINI-BAG PLUS 100 ML IV SCH ×2 (09:15→20:35)
--- NOTE | 2021-01-30 11:37 | IPNPDOC ---
Text Note Date of Service The patient was seen on 01/30/21. NOTE Subjective: No any acute events overnight. Patient denies any fever, chills, nausea, vomiting diarrhea dysuria. He is on the room air Objective: GENERAL APPEARANCE: Somnolent male HEENT: no scleral icterus, plus JVD, EOMI CARDIOVASCULAR: Irregularly irregular LUNGS: Diminished lung sounds bilaterally ABDOMEN: soft & not tender w palpation MUSCULOSKELETAL: no cyanosis, +1 swelling of both legs INTEGUMENT: no generalized pallor NEUROLOGICAL: cranial nerve function from 2-12 intact, follows commands, speech not dysarthric Assessment/Plan Patient is 89 years old male with past medical history of coronary artery diseases, hyperlipidemia, hypertension, COPD, [place], 2 stents placement, diastolic CHF, atrial fibrillation not on the anticoagulation, esophageal cancer, metastatic lung cancer treated with chemotherapy and radiation presented to hospital with increased shortness of breath. Patient is very poor historian, most of his history I obtained from previous records. In ER patient was found to have heart rate of 125 with atrial fibrillation, no leukocytosis, lactic acid 2.9, potassium 5.7, creatinine 2.5, AST 1491, ALT 1054, [place] [address] chest showed There is no significant change in appearance of the pleural effusion, There is bronchiectasis status quo. There is peribronchial wall thickening status quo. CT abdomen/pelvis showed No gross change compared to the prior exam. Subtle findings right lower quadrant. Problems (1) Atrial fibrillation with RVR Heart rate improved Eliquis 2.5 twice daily Lopressor IV as needed with parameters continue digoxin 0.125 daily (2) Acute diastolic CHF (congestive [place]) [place] [address], plus JVD Echo Severe global left ventricular systolic dysfunction with diffuse hypokinesis. Assessment of the left ventricular not conclusive. 2. Aortic valve sclerosis with mild aortic regurgitation, but no aortic stenosis. Mitral annulus calcification with moderate mitral regurgitation and a moderately enlarged left atrium. Moderate tricuspid regurgitation with mild pulmonary hypertension. Ejection fraction 20 to 25% Telemetry Dr. Wooten recommended to start hydralazine 10 mg p.o. daily, isosorbide 10 mg and torsemide 10 mg daily (3) Hypertension Blood pressure under control Continue to monitor (4) Lung cancer Patient is a poor historian I will try to obtain medical history from PCP. According to his patient now in remission (5) Esophageal cancer Patient is a poor historian I will try to obtain medical history from PCP. According to his patient was cured after removal esophageal mass (6) Transaminitis Improved Hepatitis panel negative (7) Acute kidney injury superimposed on chronic kidney disease Most likely secondary to kidney hypoperfusion due to hypotension secondary to rapid ventricular rate and atrial fibrillation Continue to monitor (8) Hyperkalemia Resolved Dyspnea Most likely due to sedation patient developed aspiration with increased oxygen requirements up to 15 L via nasal cannula on 01/29/21. Patient has good oxygen saturation in the morning on the room air White blood count normalized Continue ceftriaxone IV and doxycycline IV Incentive spirometry, Acapella Chest x-ray on 01/30/2021 showed Large opacities at the perihilar region in the left mid and upper lung zone and peripheral opacities that may reflect the presence of postobstructive pneumonitis suggested by CT Plan / VTE VTE Prophylaxis Ordered?: Yes VS,Fishbone, I+O VS, Fishbone, I+O Laboratory Tests 01/30/21 05:50 Vital Signs Date Time Temp Pulse Resp B/P (MAP) Pulse Ox O2 Delivery O2 Flow Rate FiO2 01/30/21 08:25 120/70 (87) 01/30/21 08:18 82 01/30/21 08:15 97.5 20 92 Room Air 01/29/21 12:00 15.0 I&O- Last 24 Hours up to 6 AM 01/30/21 05:59 Intake Total 590 ml Output Total 150 ml Balance 440 ml SIM RODRIGUEZ DO Jan 30, 2021 11:37
[2021-01-30] MEDS: TORSEMIDE 10 MG TABLET PO SCH (11:59)
[2021-01-30] MEDS ORDERED: PILL CUTTER 1 EACH XX PRN (12:20)
--- NOTE | 2021-01-30 16:54 | IPN ---
NEPHROLOGY PROGRESS NOTE DATE: 01/30/2021 SUBJECTIVE: Mr. Quiroz is seen this morning at his bedside. He is sitting in the chair at the time of my visit. He is much more alert today and was able to recognize me and tell me my name. He was also able to tell me the name of the hospital and month today. Yesterday he could not answer those questions appropriately. He denies any nausea or vomiting. He still has some cough. OBJECTIVE: PHYSICAL EXAMINATION: VITAL SIGNS: Temperature 97.5 degrees Fahrenheit, heart rate 82 per minute, respiratory rate 20 per minute. Blood pressure 120/70 mm of mercury and oxygen saturation is 92% on room air. GENERAL APPEARANCE: He has significant wasting and emaciation. HEENT: His head is atraumatic. NECK: Supple and JVD not abnormally elevated. HEART: Sounds are regular. LUNGS: Diminished breath sounds on the left side. ABDOMEN: Soft and nontender and bowel sounds are normal. EXTREMITIES: Without any cyanosis or clubbing. CONTINUATION: LABORATORY STUDIES: His labs done today showed sodium 144, potassium 3.7, BUN 71 and creatinine 2.53. His AST is down to 113, ALT down to 442 and alkaline phosphatase 293. Albumin is 2.0. WBC count is 6.4, hemoglobin 11.5 and hematocrit 37. PROBLEMS: 1. Acute kidney injury superimposed on chronic kidney disease gradual improvement in kidney function is noticed. At present I would keep him off of diuretics. I feel that his acute kidney injury is most likely related to contrast nephropathy. 2. Hypoxemia Probably related to atrial fibrillation with rapid ventricular rate and left lung mass. He has significant involvement of his left lung. At present he is oxygenating 92% on room air. His volume status seems to be reasonably well compensated. He does have some infiltrate on the recent imaging studies. 3. Atrial fibrillation - The patient had rapid ventricular rate with atrial fibrillation due to which he was admitted. His heart rate is now much better controlled. 4. Left lung mass - The patient has a known history of lung cancer. He will follow up with Radiation Oncology as an outpatient.
[2021-01-30] MEDS: buPROPion **XL** TABLET 150MG (WELLBUTRIN XL) PO SCH (20:37)
[2021-01-31] VITALS: BP 134/73
[2021-01-31 04:00] VITALS: BP 158/91
[2021-01-31] MEDS: IPRATROPIUM 0.5MG/ALBUTEROL 2.5MG INH SOL UD 3ML (DUONEB) INH SCH ×6 (04:00→20:25)
[2021-01-31] MEDS: LEVOTHYROXINE 137MCG TABLET (0.137MG) PO SCH (05:27)
[2021-01-31 05:44] LABS: BASO % 0.2 % (0.0-1.0); EOS % 0.4 % (0.0-3.0); HEMATOCRIT 34.7 % (42.0-52.0); LYMPH # 0.5 10^3/uL (1.5-5.0); LYMPH % 11.6 % (24.0-44.0); MEAN CORPUSCULAR HEMOGLOBIN 30.1 pg (27.0-33.0); MEAN CORPUSCULAR HGB CONC 31.7 g/dl (32.0-36.5); MEAN CORPUSCULAR VOLUME 95.1 fl (80.0-96.0); MONO % 22.3 % (2.0-8.0); NEUTROPHILS % 64.6 % (36.0-66.0); PLATELET COUNT, AUTOMATED 124 10^3/uL (150-450); RED BLOOD COUNT 3.65 10^6/uL (4.30-6.10); WHITE BLOOD COUNT 4.6 10^3/uL (4.0-10.0)
[2021-01-31 05:58] LABS: ALBUMIN 1.9 GM/DL (3.2-5.2); BILIRUBIN,TOTAL 0.5 MG/DL (0.2-1.0); CALCIUM LEVEL 8.2 MG/DL (8.8-10.2); CREATININE FOR GFR 2.02 MG/DL (0.70-1.30); GLOMERULAR FILTRATION RATE 33.3 (>35); TOTAL PROTEIN 5.2 GM/DL (6.4-8.2)
[2021-01-31 08:00] VITALS: BP 161/90
[2021-01-31] MEDS: TORSEMIDE 10 MG TABLET PO SCH (08:21)
[2021-01-31] MEDS: cefTRIAXone SOD 2 GM in D5W MINI-BAG PLUS 50 ML IV SCH (08:21)
[2021-01-31] MEDS: PARoxetine 20MG TABLET PO SCH (08:21)
[2021-01-31] MEDS: **hydrALAZINE** 10 MG TAB PO SCH (08:22)
[2021-01-31] MEDS: DIGOXIN 0.125 MG TAB PO SCH (08:22)
[2021-01-31] MEDS: METOPROLOL TART 25 MG TABLET PO SCH ×3 (08:24→20:57)
[2021-01-31] MEDS: APIXABAN 2.5 MG TAB (ELIQUIS) PO SCH ×2 (08:24→20:57)
[2021-01-31] MEDS: CALCITRIOL 0.25 MCG CAP (S0169) PO SCH (08:25)
[2021-01-31] MEDS: FAMOTIDINE 20 MG TAB PO SCH ×2 (08:25→20:57)
[2021-01-31] MEDS: ISOSORBIDE MONONITRATE 10MG TABLET PO SCH ×2 (08:30→16:03)
[2021-01-31] MEDS ORDERED: FUROSEMIDE 40MG/4ML VIAL (J1940) IV ONE (09:20)
[2021-01-31] MEDS: DOXYCYCLINE HYCLATE 100 MG in D5W MINI-BAG PLUS 100 ML IV SCH (11:35)
--- NOTE | 2021-01-31 11:39 | IPNPDOC ---
Text Note Date of Service The patient was seen on 01/31/21. NOTE Subjective: No any acute events overnight. Patient pleasantly confused, not oriented in place Objective: GENERAL APPEARANCE: Somnolent male HEENT: no scleral icterus, plus JVD, EOMI CARDIOVASCULAR: Irregularly irregular LUNGS: Diminished lung sounds bilaterally ABDOMEN: soft & not tender w palpation MUSCULOSKELETAL: no cyanosis, +1 swelling of both legs INTEGUMENT: no generalized pallor NEUROLOGICAL: cranial nerve function from 2-12 intact, follows commands, speech not dysarthric Assessment/Plan Patient is 89 years old male with past medical history of coronary artery diseases, hyperlipidemia, hypertension, COPD, [place], 2 stents placement, diastolic CHF, atrial fibrillation not on the anticoagulation, esophageal cancer, metast atic lung cancer treated with chemotherapy and radiation presented to hospital with increased shortness of breath. Patient is very poor historian, most of his history I obtained from previous records. In ER patient was found to have heart rate of 125 with atrial fibrillation, no leukocytosis, lactic acid 2.9, potassium 5.7, creatinine 2.5, AST 1491, ALT 1054, [place] [address] chest showed There is no significant change in appearance of the pleural effusion, There is bronchiectasis status quo. There is peribronchial wall thickening status quo. CT abdomen/pelvis showed No gross change compared to the prior exam. Subtle findings right lower quadrant. Problems (1) Atrial fibrillation with RVR Heart rate improved Eliquis 2.5 twice daily Lopressor IV as needed with parameters continue digoxin 0.125 daily Appreciate/agree with supervisor cloth winding consult (2) Acute diastolic CHF (congestive [place] failure) [place] [address], plus JVD Echo Severe global left ventricular systolic dysfunction with diffuse hypokinesis. Assessment of the left ventricular not conclusive. 2. Aortic valve sclerosis with mild aortic regurgitation, but no aortic stenosis. Mitral annulus calcification with moderate mitral regurgitation and a moderately enlarged left atrium. Moderate tricuspid regurgitation with mild pulmonary hypertension. Ejection fraction 20 to 25% Telemetry Dr. Wooten recommended to start hydralazine 10 mg p.o. daily, isosorbide 10 mg and torsemide 10 mg daily (3) Hypertension Blood pressure under control Continue to monitor (4) Lung cancer Patient is a poor historian I will try to obtain medical history from PCP. According to his patient now in remission (5) Esophageal cancer Patient is a poor historian I will try to obtain medical history from PCP. According to his patient was cured after removal esophageal mass (6) Transaminitis Improved Hepatitis panel negative (7) Acute kidney injury superimposed on chronic kidney disease Most likely secondary to kidney hypoperfusion due to hypotension secondary to rapid ventricular rate and atrial fibrillation Continue to monitor Improved (8) Hyperkalemia Resolved Dyspnea Most likely due to sedation patient developed aspiration with increased oxygen requirements up to 15 L via nasal cannula on 01/29/21. Patient has good oxygen saturation in the morning on the room air White blood count normalized Continue ceftriaxone IV and doxycycline IV Incentive spirometry, Acapella Chest x-ray on 01/30/2021 showed Large opacities at the perihilar region in the left mid and upper lung zone and peripheral opacities that may reflect the presence of postobstructive pneumonitis suggested by CT Plan / VTE VTE Prophylaxis Ordered?: Yes VS,Fishbone, I+O VS, Fishbone, I+O Laboratory Tests 01/31/21 05:08 Vital Signs Date Time Temp Pulse Resp B/P (MAP) Pulse Ox O2 Delivery O2 Flow Rate FiO2 01/31/21 08:22 77 01/31/21 08:00 98.0 18 161/90 (113) 95 Room Air 01/29/21 12:00 15.0 I&O- Last 24 Hours up to 6 AM 01/31/21 06:00 Intake Total 1350 ml Output Total 0 ml Balance 1350 ml SIM RODRIGUEZ DO Jan 31, 2021 11:39
[2021-01-31 12:00] VITALS: BP 138/84
--- NOTE | 2021-01-31 12:48 | IPN ---
NEPHROLOGY PROGRESS NOTE DATE: 01/31/2021 SUBJECTIVE: Mr. Quiroz is seen this morning on his bedside. He is lying in his bed with head end elevated about 30 degrees. He has a persistent cough today during my visit. The last 2 days I did not hear him coughing much. He is feeling well otherwise. PHYSICAL EXAMINATION: Temperature 98 degrees Fahrenheit, heart rate 76 per minute and respiratory rate 18 per minute. Blood pressure 160/90 mmHg and oxygen saturation 95% on room air. Head: Atraumatic. Neck: Supple and JVD is probably slightly elevated. Heart: Sounds are regular. Lungs: Have bilateral rhonchi and rales. Abdomen: Soft and nontender and bowel sounds are normal. Extremities: Without any cyanosis or clubbing. He has trace edema on lower legs. Neurologically: He is at his baseline mentation. LABORATORY DATA: Today's labs show: WBC count 4.6, hemoglobin 11, hematocrit 34.7, platelets 124. Sodium 143, potassium 4, CO2 27, BUN 57, creatinine 2, glucose 89, calcium 8.2. AST is down to 72, ALT 324, alkaline phosphatase 246. Albumin 1.9. PROBLEMS/PLAN: 1. Acute renal failure superimposed on chronic kidney disease: Most likely contrast nephropathy and related to rapid atrial fibrillation. Kidney function is now gradually improving. 2. 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 He is probably mildly volume overloaded today and I am going to give him 1 dose of intravenous Lasix 40 mg and see how he does. He has also received torsemide 10 mg. 3. Left lung infiltrate most likely related to malignancy: He remains on doxycycline and ceftriaxone in addition to bronchodilators. 4. Abnromal LFTs: His LFTs are now improving and no specific intervention is needed. 5. Anemia: His anemia has been stable and does not need any intervention.
[2021-01-31 16:00] VITALS: BP 141/71
[2021-01-31 20:00] VITALS: BP 115/83
[2021-01-31] MEDS: buPROPion **XL** TABLET 150MG (WELLBUTRIN XL) PO SCH (20:57)
[2021-02-01] VITALS: BP 125/84
[2021-02-01 04:00] VITALS: BP 156/91
[2021-02-01] MEDS: IPRATROPIUM 0.5MG/ALBUTEROL 2.5MG INH SOL UD 3ML (DUONEB) INH SCH ×5 (04:00→14:30)
[2021-02-01 05:24] LABS: BASO % 0.2 % (0.0-1.0); EOS % 0.5 % (0.0-3.0); HEMATOCRIT 34.2 % (42.0-52.0); HEMOGLOBIN 10.7 g/dl (13.5-17.5); LYMPH # 0.4 10^3/uL (1.5-5.0); LYMPH % 9.6 % (24.0-44.0); MEAN CORPUSCULAR HGB CONC 31.3 g/dl (32.0-36.5); MEAN CORPUSCULAR VOLUME 95.8 fl (80.0-96.0); MONO # 1.2 10^3/uL (0.0-0.8); MONO % 28.8 % (2.0-8.0); NEUTROPHILS # 2.6 10^3/uL (1.5-8.5); NEUTROPHILS % 60.2 % (36.0-66.0); PLATELET COUNT, AUTOMATED 121 10^3/uL (150-450); RED BLOOD COUNT 3.57 10^6/uL (4.30-6.10); WHITE BLOOD COUNT 4.3 10^3/uL (4.0-10.0)
[2021-02-01 06:08] LABS: BILIRUBIN,TOTAL 0.4 MG/DL (0.2-1.0); CALCIUM LEVEL 8.1 MG/DL (8.8-10.2); CREATININE FOR GFR 1.79 MG/DL (0.70-1.30); GLOMERULAR FILTRATION RATE 38.3 (>35); MAGNESIUM LEVEL 1.8 MG/DL (1.8-2.4); POTASSIUM SERUM 3.4 MEQ/L (3.5-5.1); TOTAL PROTEIN 5.3 GM/DL (6.4-8.2)
[2021-02-01] MEDS: LEVOTHYROXINE 137MCG TABLET (0.137MG) PO SCH (06:19)
[2021-02-01] MEDS ORDERED: POTASSIUM CHLORIDE 10MEQ SR TABLET PO ONE ×2 (07:30)
[2021-02-01 08:00] VITALS: BP 162/85
[2021-02-01] MEDS: **hydrALAZINE** 10 MG TAB PO SCH (08:53)
[2021-02-01] MEDS: TORSEMIDE 10 MG TABLET PO SCH (08:53)
[2021-02-01] MEDS: FAMOTIDINE 20 MG TAB PO SCH (08:54)
[2021-02-01] MEDS: METOPROLOL TART 25 MG TABLET PO SCH ×2 (08:54→15:44)
[2021-02-01] MEDS: DIGOXIN 0.125 MG TAB PO SCH (08:55)
[2021-02-01] MEDS: APIXABAN 2.5 MG TAB (ELIQUIS) PO SCH (08:56)
[2021-02-01] MEDS: PARoxetine 20MG TABLET PO SCH (08:56)
[2021-02-01] MEDS: ISOSORBIDE MONONITRATE 10MG TABLET PO SCH ×2 (09:00→15:44)
[2021-02-01] MEDS ORDERED: METO1TAB87 PO (11:13)
[2021-02-01] MEDS ORDERED: HYDR10TAB PO (11:13)
[2021-02-01] MEDS ORDERED: DIGO0.123 PO (11:13)
[2021-02-01] MEDS ORDERED: TORS10TA3 PO (11:13)
[2021-02-01] MEDS ORDERED: ELIQ2.5T PO ×2 (11:13→14:24)
[2021-02-01] MEDS ORDERED: ISOS10TAB PO (11:13)
[2021-02-01 12:00] VITALS: BP 163/81
[2021-02-01] MEDS ORDERED: XARE20TA PO (12:33)
--- NOTE | 2021-02-01 15:38 | IPN ---
PROGRESS NOTE DATE: 02/01/2021 SUBJECTIVE: Mr. Quiroz is seen this morning on his bedside. He is lying comfortably in the bed. His cough has improved. He denies any fever or chills. Yesterday he could not stop coughing. He was given intravenous Lasix one dose and seems to be much improved today. PHYSICAL EXAMINATION: VITALS: Temperature 97.5 degrees Fahrenheit, heart rate 72 per minute, respiratory rate 16 per minute, blood pressure 162/85 mmHg, and oxygen saturation 93% on room air. INTAKE/OUTPUT: His urine output has not been recorded. HEENT: Head is atraumatic. Neck is supple and without JVD or thyroid enlargement. HEART: Heart sounds are irregular. LUNGS: With diminished breath sounds on the left side and bibasilar coarse . ABDOMEN: Soft and nontender. Bowel sounds are normal. EXTREMITIES: Without any cyanosis or clubbing. He does not have any peripheral edema. NEUROLOGIC: He is hard of hearing, but at his baseline mentation. LABORATORY DATA: Today's labs show WBC 4.3, hemoglobin 10.7, hematocrit 34.2, platelets 121,000. Sodium 146, potassium 3.4, BUN 47, creatinine 1.79. AST 71, ALT 268 and alkaline phosphatase 212. PROBLEMS: 1. Acute kidney injury superimposed on chronic kidney disease: Kidney function is back to about baseline. He can resume all his chronic medications at home once he gets discharged. 2. Hypokalemia: Mild hypokalemia related to diuretics given yesterday. He should get potassium supplement that will correct his hypokalemia. He has already been given two doses of potassium today. 3. Atrial fibrillation with rapid ventricular rate: His ventricular rate is not much better controlled with Metoprolol and Digoxin. He is also on anticoagulation with Eliquis. 4. Anemia: Chronic anemia is stable and does not need any urgent intervention. 5. Metastatic lung cancer: Patient has known history of left lung cancer, he can follow-up with oncology as an outpatient. DISPOSITION: From a renal standpoint, patient can be discharged to home and follow-up in the clinic as an outpatient.
[2021-02-01 15:44] VITALS: BP 163/81
--- NOTE | 2021-02-01 19:24 | DS.PDOC ---
Discharge Summary General Date of Admission Jan 27, 2021 at 17:00 Date of Discharge 02/01/21 Discharge Summary PROCEDURES PERFORMED DURING STAY: [None]. ADMITTING DIAGNOSES: Atrial fibrillation with RVR Acute diastolic CHF (congestive heart failure) Hypertension Lung cancer Esophageal cancer Transaminitis Acute kidney injury superimposed on chronic kidney disease Hyperkalemia Dyspnea DISCHARGE DIAGNOSES: Atrial fibrillation with RVR Acute diastolic CHF (congestive heart failure) Hypertension Lung cancer Esophageal cancer Transaminitis Acute kidney injury superimposed on chronic kidney disease Hyperkalemia Dyspnea COMPLICATIONS/CHIEF COMPLAINT: Atrial Fibrillation W/Rvr. HISTORY OF PRESENT ILLNESS: Patient is 89 years old male with past medical history of coronary artery diseases, hyperlipidemia, hypertension, COPD, LA, 2 stents placement, diastolic CHF, atrial fibrillation not on the anticoagulation, esophageal cancer, metastatic lung cancer treated with chemotherapy and radiation presented to hospital with increased shortness of breath. Patient is very poor historian, most of his history I obtained from previous records. In ER patient was found to have heart rate of 125 with atrial fibrillation, no leukocytosis, lactic acid 2.9, potassium 5.7, creatinine 2.5, AST 1491, ALT 1054, [place] [address] chest showed There is no significant change in appearance of the pleural effusion, There is bronchiectasis status quo. There is peribronchial wall thickening status quo. CT abdomen/pelvis showed No gross change compared to the prior exam. Subtle findings right lower quadrant. HOSPITAL COURSE: During the hospital stay the following issue addressed Patient developed atrial fibrillation with RVR Restarted Eliquis 2.5 twice daily Lopressor IV as needed with parameters continue digoxin 0.125 daily Heart rate was stabilized and normalized (2) Acute diastolic CHF (congestive [place]) [place] [address], plus JVD Echo Severe global left ventricular systolic dysfunction with diffuse hypokinesis. Assessment of the left ventricular not conclusive. 2. Aortic valve sclerosis with mild aortic regurgitation, but no aortic stenosis. Mitral annulus calcification with moderate mitral regurgitation and a moderately enlarged left atrium. Moderate tricuspid regurgitation with mild pulmonary hypertension. Ejection fraction 20 to 25% Telemetry Dr. Wooten recommended to start hydralazine 10 mg p.o. daily, isosorbide 10 mg and torsemide 10 mg daily (3) Hypertension Blood pressure under control Continue to monitor (4) Lung cancer Patient is a poor historian According to patient patient in remission (5) Esophageal cancer Patient is a poor historian According to his patient was cured after removal esophageal mass (6) Transaminitis Improved Hepatitis panel negative (7) Acute kidney injury superimposed on chronic kidney disease Most likely secondary to kidney hypoperfusion due to hypotension secondary to rapid ventricular rate and atrial fibrillation Continue to monitor Improved (8) Hyperkalemia Resolved Dyspnea Most likely due to sedation patient developed aspiration with increased oxygen requirements up to 15 L via nasal cannula on 01/29/21. Patient has good oxygen saturation in the morning on the room air White blood count normalized Patient received ceftriaxone IV and doxycycline IV Incentive spirometry, Acapella Chest x-ray on 01/30/2021 showed Large opacities at the perihilar region in the left mid and upper lung zone and peripheral opacities that may reflect the presence of postobstructive pneumonitis suggested by CT Resolved DISCHARGE MEDICATIONS: Please see below. ALLERGIES: Please see below. PHYSICAL EXAMINATION ON DISCHARGE: VITAL SIGNS: Please see below. GENERAL APPEARANCE: Somnolent male HEENT: no scleral icterus, plus JVD, EOMI CARDIOVASCULAR: Irregularly irregular LUNGS: Diminished lung sounds bilaterally ABDOMEN: soft & not tender w palpation MUSCULOSKELETAL: no cyanosis, +1 swelling of both legs INTEGUMENT: no generalized pallor NEUROLOGICAL: cranial nerve function from 2-12 intact, follows commands, speech not dysarthric LABORATORY DATA: Please see below. PROGNOSIS: Guarded ACTIVITY: [As tolerated]. DIET: Cardiac DISPOSITION: Home Health Service. ITEMS TO FOLLOWUP ON ON OUTPATIENT: Follow-up with quality assurance supervisor body and traffic circuit engineer DISCHARGE CONDITION: [Stable]. TIME SPENT ON DISCHARGE: 40minutes. Vital Signs/I&Os Vital Signs Date Time Temp Pulse Resp B/P (MAP) Pulse Ox O2 Delivery O2 Flow Rate FiO2 02/01/21 15:44 163/81 02/01/21 15:44 69 02/01/21 12:00 97.7 18 93 Room Air 01/29/21 12:00 15.0 I&O- Last 24 Hours up to 6 AM 02/01/21 06:00 Intake Total 830 ml Balance 830 ml Laboratory Data Labs 24H Laboratory Tests 2 02/01/21 05:11: Immature Granulocyte % (Auto) 0.7, Neutrophils (%) (Auto) 60.2, Lymphocytes (%) (Auto) 9.6L, Monocytes (%) (Auto) 28.8H, Eosinophils (%) (Auto) 0.5, Basophils (%) (Auto) 0.2, Neutrophils # (Auto) 2.6, Lymphocytes # (Auto) 0.4L, Monocytes # (Auto) 1.2H, Eosinophils # (Auto) 0.0, Basophils # (Auto) 0.0, Nucleated Red Blood Cells % (auto) 0.0, Anion Gap 9, Glomerular Filtration Rate 38.3, Calcium Level 8.1L, Magnesium Level 1.8, Total Bilirubin 0.4, Aspartate Amino Transf (AST/SGOT) 71H, Alanine Aminotransferase (ALT/SGPT) 268H, Alkaline Phosphatase 212H, Total Protein 5.3L, Albumin 2.0L, Albumin/Globulin Ratio 0.6 CBC/BMP Laboratory Tests 02/01/21 05:11 Microbiology Microbiology 01/29/21 Blood Culture - Preliminary, Resulted No Growth after 72 hours. All specime... 01/29/21 Blood Culture - Preliminary, Resulted No Growth after 72 hours. All specime... 01/27/21 Blood Culture - Final, Complete NO GROWTH AFTER 5 DAYS 01/27/21 Blood Culture - Final, Complete NO GROWTH AFTER 5 DAYS Discharge Medications Scheduled Apixaban (Eliquis) 2.5 Mg Tablet, 2.5 MG PO BID Bupropion Hcl (Bupropion Xl) 150 Mg Tab.er.24h, 150 MG PO QHS, (Reported) Calcitriol (Rocaltrol) 0.25 Mcg Cap, 0.25 MCG PO 3XW, (Reported) M-W-F Digoxin (Digoxin) 125 Mcg Tablet, 0.125 MG PO DAILY Famotidine (Pepcid AC) 20 Mg Tablet, 20 MG PO BID, (Reported) Hydralazine HCl (Hydralazine HCl) 10 Mg Tablet, 10 MG PO DAILY Isosorbide Mononitrate (Isosorbide Mononitrate) 10 Mg Tablet, 5 MG PO BID@0900,1600 Lactobacillus Acidophilus (Probiotic) 1 Each Capsule, 1 CAP PO DAILY, (Reported) Levothyroxine Sodium (Levothyroxine Sodium) 137 Mcg Tablet, 137 MCG PO QAM, (Reported) Metoprolol Tartrate (Metoprolol Tartrate) 25 Mg Tablet, 25 MG PO TID Paroxetine HCl (Paxil) 20 Mg Tablet, 20 MG PO DAILY, (Reported) Torsemide (Torsemide) 10 Mg Tablet, 10 MG PO DAILY Scheduled PRN Acetaminophen (Tylenol Arthritis) 650 Mg Tablet.er, 650 MG PO Q8H PRN for PAIN, (Reported) Allergies Coded Allergies: Tetanus Vaccines and Toxoid (Verified Allergy, Severe, rigidity, 12/12/19) SIM RODRIGUEZ DO Feb 01, 2021 19:24
== END 2021-02-01 15:58 | disposition home health service (06) | DRG 308 ==
LOC: EDBD 13:09 → M ED 13:09 → M ED INP 17:00 → UNDOADMIN 17:00 → ENRESERV 01-28 21:14 → M PCU 01-28 23:59
PROVIDERS: ADMIT Internal Medicine; ATTEND Internal Medicine
DX: I48.91 Unspecified atrial fibrillation (principal); I50.33 Acute on chronic diastolic (congestive) heart failure; J18.9 Pneumonia, unspecified organism; N17.9 Acute kidney failure, unspecified; C15.9 Malignant neoplasm of esophagus, unspecified; I13.0 Hypertensive heart and chronic kidney disease with heart failure and stage 1 through stage 4 chronic kidney disease, or unspecified chronic kidney disease; C34.12 Malignant neoplasm of upper lobe, left bronchus or lung; N18.4 Chronic kidney disease, stage 4 (severe); I25.10 Atherosclerotic heart disease of native coronary artery without angina pectoris; E87.5 Hyperkalemia; Z79.899 Other long term (current) drug therapy; Z88.7 Allergy status to serum and vaccine; E78.5 Hyperlipidemia, unspecified; J43.9 Emphysema, unspecified; I25.2 Old myocardial infarction; Z95.2 Presence of prosthetic heart valve; Z92.21 Personal history of antineoplastic chemotherapy; Z92.3 Personal history of irradiation; M10.9 Gout, unspecified; E03.9 Hypothyroidism, unspecified; E87.6 Hypokalemia

== ENCOUNTER → 2021-02-08 | Outpatient (REF) | payer MEDICARE ==
[~2021-02-08] MED LIST changes: +BUPR150T12 PO; +DIGO0.123 PO; +ELIQ2.5T PO; +HYDR10TAB PO; +ISOS10TAB PO; +LEVO137T2 PO; +METO1TAB87 PO; +PAXI20TA29 PO; +TORS10TA3 PO; +XARE20TA PO
[2021-02-08 18:03] LABS: DIGOXIN LEVEL 1.3 NG/ML (0.5-2.0); FREE T4 1.32 NG/DL (0.76-1.46); MAGNESIUM LEVEL 2.3 MG/DL (1.8-2.4); THYROID STIMULATING HORMONE 8.2 uIU/ML (0.358-3.740)
== END ==
LOC: M LAB REF 17:00
PROVIDERS: ATTEND Nurse Practitioner Family
DX: R94.5 Abnormal results of liver function studies (principal); I48.0 Paroxysmal atrial fibrillation; E03.9 Hypothyroidism, unspecified; E83.42 Hypomagnesemia; G47.51 Confusional arousals